=== PATIENT | female | born 1985 | race Caucasian/White ===

== ENCOUNTER → 2021-08-16 12:01 | Outpatient (BNVA) | payer MEDICARE, MEDICAID, SELFPAY | PROVIDERS: PCP Internal Medicine; Visit Provider Advanced Practice Midwife | DX: Z30.431 Encounter for routine checking of intrauterine contraceptive device (principal); R10.2 Pelvic and perineal pain | CPT/HCPCS: Q3014 ==

== ENCOUNTER 2021-09-01 11:06 | Outpatient (REF) | payer MEDICARE, SELFPAY ==
--- NOTE | ~2021-09-01 | US_ITS ---
EXAMINATION: US PELVIS CLINICAL INFORMATION: Left ovarian cyst. COMPARISON: Ultrasound pelvis 01/26/2020. TECHNIQUE: Ultrasound of the pelvis is performed using both transabdominal and transvaginal transducers along with Doppler. Transvaginal imaging is performed due to inadequate visualization transabdominally. FINDINGS: Uterus: The uterus is anteverted and measures 8.4 cm in length, 4.2 cm AP and 5.2 cm in transverse dimension. Endometrial thickness is 0.3 cm. An IUD is noted well located within the endometrial canal. There is a small hypoechoic lesion in the anterior fundus measuring 0.7 x 0.5 x 0.7 cm. The double wall endometrial thickness measures 0.3 cm. The uterus is smooth in contour and has normal myometrial echogenicity. There are several anechoic nabothian cysts seen. Adnexa: The right ovary measures 2.8 x 1.5 x 2.2 cm and volume 4.8 mL. There is anechoic exophytic lytic cyst measuring 0.9 x 0.9 x 0.6 cm. The left ovary measures 3.8 x 2.3 x 2.6 cm and 9.03 mL volume. There is anechoic cyst measuring 1.8 x 1.8 x 2.2 cm, with an adjacent anechoic daughter cyst. There is small calcification seen. US/US pelvic and transvaginal IMPRESSION: Exophytic cyst right ovary measuring 0.9 cm. Left ovarian cyst with a daughter cyst adjacent. There is small calcification right ovary. A complex right ovarian cyst was seen on the previous exam 01/26/2020. There is an IUD located within the endometrial canal in correct position. IUD was noted on the previous exam as well. There is a small fundal uterine fibroid.
== END 2021-09-01 11:07 | disposition home or self-care (01) ==
LOC: HO.US 11:06
PROVIDERS: PCP Internal Medicine; Visit Provider Advanced Practice Midwife
DX: N83.292 Other ovarian cyst, left side (principal)
CPT/HCPCS: 76830; 76856

== ENCOUNTER → 2021-09-12 13:36 | Outpatient (BNVA) | payer MEDICARE, MEDICAID, SELFPAY | PROVIDERS: Visit Provider Obstetrics & Gynecology | CPT/HCPCS: Q3014 ==

== ENCOUNTER → 2021-09-15 13:06 | Outpatient (BNVA) | payer OTHER, SELFPAY | PROVIDERS: PCP Internal Medicine; Visit Provider Advanced Practice Midwife | DX: Z30.432 Encounter for removal of intrauterine contraceptive device (principal) | CPT/HCPCS: 58301 ==

== ENCOUNTER 2022-10-24 09:48 | Outpatient (REF) | payer MEDICARE, MEDICAID, SELFPAY ==
--- NOTE | ~2022-10-24 | US_ITS ---
EXAMINATION: US DIAGNOSTIC ULTRASOUND BREAST, RIGHT CLINICAL INFORMATION: 37-year-old with palpable nodule posterior medial right breast near sternum for approximately one year. Patient also notes probable increased size of biopsy-proven fibroadenoma (no clip placed). COMPARISON: Outside imaging reports from [facility]: Right breast ultrasound 01/22/2015, ultrasound guided biopsy right breast 01/29/2015 (no clip placed), right breast ultrasound 11/16/2017. TECHNIQUE: Ultrasound of the right breast is targeted to the 2 areas of palpable concern using grayscale imaging and color Doppler without and with harmonics. Patient declined mammography. FINDINGS: The palpable area of concern posterior medial right breast 3:00 position near sternum demonstrates an intradermal lesion measuring approximately 0.7 x 0.5 cm with circumscribed margins and short stalk extending from the lesion towards the more superficial skin. There is no subdermal extension. There is increased through-transmission of sound. No surrounding hyperemia on color Doppler and no internal color flow. The previously biopsied mass (fibroadenoma, no clip placed) at areola margin 5:00 position demonstrates solid mass superficial just beneath the skin with macrolobulated margins and overall size 2.8 x 1.2 x 2.0 cm. This is increased in size when compared with prior measurements of 1.7 x 0.9 x 1.4 cm described on report 01/29/2015. Additional imaging is also performed at subtle area of erythema 4:00 position 6 cm from nipple. This corresponds to an intradermal lesion discoid in shape and overall size approximately 0.6 x 02 cm. There is mild surrounding hyperemia on color Doppler. No internal color flow. No subdermal extension or visible stalk to skin surface. Results are discussed with the patient at time of visit. The fibroadenoma is increased in size as suspected by patient. Surgical consult is suggested for consideration of excision. The 2 other areas of intradermal lesion most likely represent small sebaceous cysts. These may be addressed at time of surgical consult as well. Results and recommendation called to aoc director intelligence officer (Johana) for LEANDRA Rahman on 10/24/2022. US/US breast RT limited IMPRESSION: -Fibroadenoma 2.8 cm increased in size from prior measurement 1.7 cm. -Palpable nodule parasternal area corresponds to 0.7 cm intradermal lesion, likely sebaceous cyst. -Small intradermal lesion with mild surrounding hyperemia also noted 0.6 cm. ASSESSMENT: BI-RADS 3: Probably Benign RECOMMENDATION: -Surgical consult for management fibroadenoma with interval growth and sebaceous cyst(s). -Screening mammography by age 38. This patient's information was entered into a reminder system with a target due date for their next mammogram.
--- NOTE | ~2022-10-24 | XR_ITS ---
EXAMINATION: XR SHOULDER, RIGHT CLINICAL INFORMATION: Injury COMPARISON: Previous x-ray September 2019 TECHNIQUE: AP external rotation, Grashey, scapular Y, and axillary views of the right shoulder. FINDINGS: The bones and soft tissues are normal. No fracture. Glenohumeral and acromioclavicular alignment is anatomic with normal joint space. No abnormal soft tissue calcifications. XR/XR shoulder RT min 2V IMPRESSION: Normal right shoulder.
[2022-10-24 10:44] LABS: MANUAL DIFF FLAG NO
[2022-10-24 12:38] LABS: Basophils Absolute Auto 0.1 X10*3/uL (0.0-0.2); Basophils Percent Auto 0.8 % (0-2); Eosinophils Absolute Auto 0.2 X10*3/uL (0.0-0.4); Eosinophils Percent Auto 3.7 % (0-4); Hemoglobin 11.8 g/dl (12.0-16.0); Imm Gran Abs Auto 0.02 X10*3/uL (0.00-0.03); Imm Gran Pct Auto 0.3 % (0.0-0.4); Lymphocytes Percent Auto 16.7 % (20-40); Mean Corpuscular HGB Conc 31.1 g/dl (31.0-35.0); Mean Corpuscular Hemoglobin 21.3 pg (27.0-33.0); Mean Corpuscular Volume 68.6 fL (80.0-98.0); Monocytes Absolute Auto 0.5 X10*3/uL (0.1-1.2); Monocytes Percent Auto 8.8 % (2-11); Neutrophils Absolute Auto 4.3 x10*3/uL (2.0-8.3); Neutrophils Percent Auto 69.7 % (45-73); Platelet Count 250 X10*3/uL (160-400); Red Blood Count 5.54 X10*6/uL (4.20-5.50); Red Cell Distribution Width 16.3 % (11.0-16.0); White Blood Count 6.2 X10*3/uL (4.8-10.8)
[2022-10-24 13:20] LABS: Alanine Aminotransferase 16 U/L (0-31); Albumin Level 4.2 g/dL (3.5-5.0); Alkaline Phosphatase 41 U/L (39-117); Anion Gap 12 (12-20); Aspartate Amino Transferase 13 U/L (5-31); Bilirubin Total 0.9 mg/dL (0.0-1.0); Blood Urea Nitrogen 11 mg/dL (9-16); Calcium 9.3 mg/dL (8.4-10.2); Carbon Dioxide 26 mmol/L (22-29); Chloride 108 mmol/L (96-108); Cholesterol 134 mg/dL; Estimated Glomerular Filt Rate > 60; Glucose Random 84 mg/dL (60-115); HDL Cholesterol 54 mg/dL; LDL Cholesterol Calculated 70 mg/dl; Potassium 4.9 mmol/L (3.3-5.1); Sodium 141 mmol/L (135-145); TSH reflex Free T4 1.11 uIU/mL (0.32-4.0); Total Protein 7.1 g/dL (6.5-8.0); Triglycerides 50 mg/dL; Vitamin D 25-OH Total 28.6 ng/mL (>30)
== END 2022-10-24 09:49 | disposition home or self-care (01) ==
LOC: HO.MAMMO 09:48
PROVIDERS: PCP Internal Medicine; Visit Provider Nurse Practitioner Family
DX: Z13.29 Encounter for screening for other suspected endocrine disorder (principal); Z13.220 Encounter for screening for lipoid disorders; Z13.21 Encounter for screening for nutritional disorder; Z13.0 Encounter for screening for diseases of the blood and blood-forming organs and certain disorders involving the immune mechanism; S49.91XA Unspecified injury of right shoulder and upper arm, initial encounter; N63.12 Unspecified lump in the right breast, upper inner quadrant
CPT/HCPCS: 36415; 73030; 76642; 80053; 80061; 82306; 84443; 85025

== ENCOUNTER → 2022-11-16 09:39 | Outpatient (BNVA) | payer MEDICARE, MEDICAID, SELFPAY | PROVIDERS: PCP Internal Medicine; Visit Provider Surgery | DX: D24.1 Benign neoplasm of right breast (principal) | CPT/HCPCS: 99202 ==

== ENCOUNTER 2022-12-11 05:49 | Day surgery (SDC) | payer MEDICARE, MEDICAID, SELFPAY ==
[2022-12-01 20:14] VITALS: BMI 39.3
--- NOTE | 2022-12-08 09:16 | P.CONAN_ITS ---
Documented by User: Courtney Driscoll NP 12/08/22 09:19 HPI - Anesthesia Eval Consult details Narrative: 37yo F for Right Breast Lumpectomy PMFSH Active Problems Active Problems: All Active Problems (Updated 11/16/22 @ 10:17 by Feliz Rogers MD) Breast mass, right (Acute) Vitamin D deficiency (Acute) Mass of multiple sites of right breast (Acute) Right shoulder injury (Acute) Encounter for IUD removal (Acute) Family planning advice (Acute) Pelvic pain in female (Acute) IUD surveillance (Acute) Complex cyst of left ovary (Acute) Thyroid nodule (Acute) Back pain (Acute) Knee pain, right (Acute) Arm pain, right (Acute) Neck pain (Acute) Urinary incontinence (Acute) Radicular pain in right arm (Acute) Anxiety (Acute) GERD (gastroesophageal reflux disease) (Acute) Past Medical History Medical History Anxiety Complex cyst of left ovary Complex regional pain syndrome Fibromyalgia GERD (gastroesophageal reflux disease) H. pylori duodenitis Mass of multiple sites of right breast Right shoulder injury Thalassemia carrier Thyroid nodule Ventral incisional hernia Vitamin D deficiency Family History Family History Mother Thyroid cancer Maternal Grandfather Lung cancer Surgical History Surgical History History of removal of cyst History of umbilical hernia repair Social History Social History Housing: House Alcohol intake: never Patient Tobacco Use Status: Former Tobacco user Years Smoked: pt states quit 2010 Use of substances other than those prescribed or required for medical reasons: Yes Substance Use Frequency: Daily Are you DNR?: No Advance Directives: No Advance Directives Information Provided: Yes Advance Directives on File: No Recently lost weight without trying: No Nutrition Risks: No Nutritional Risk Patient : No service: No Current occupational status: disabled Current occupation: pt on disability Sexual orientation: Straight/Heterosexual Gender identity: Female Cognitive needs: No Hearing needs: No Vision needs: No Meds Allergies Allergy/AdvReac Type Severity Reaction Status Date / Time Penicillins [PCN] Allergy Intermediate HIVES Verified 11/16/22 09:52 Home Medications Medication Instructions Recorded Confirmed Last Taken Type alprazolam 0.25 mg tablet 0.25 mg PO DAILY 09/03/20 12/01/22 Unknown History multivitamin 1 tab PO DAILY 09/03/20 12/01/22 Unknown History ascorbic acid (vitamin C) 1,000 mg 1,000 mg PO DAILY 12/01/22 12/01/22 Unknown History tablet,extended release (Vitamin C ER) zinc 50 mg tablet 50 mg PO DAILY 12/01/22 12/01/22 Unknown History glutathione 1,000 12/11/22 Unknown History Exam Exam Date and Time: December 08, 2022 0916 Height,Weight and Vital Signs: Height 5 ft 3 in Weight 100.698 kg Pertinent Lab Results Pertinent Lab Results: Laboratory Tests 10/24/22 10/24/22 10:43 10:43 WBC 6.2 Hgb 11.8 L Hct 38.0 Plt Count 250 Sodium 141 Potassium 4.9 Chloride 108 Carbon Dioxide 26 BUN 11 Creatinine 0.78 Assessment and Plan Assessment Anesthesia Assessment: Chart Reviewed Documented by User: Anuja Pena MD 12/11/22 08:03 [facility] Past Medical History Medical History Anxiety Complex cyst of left ovary Complex regional pain syndrome Fibromyalgia GERD (gastroesophageal reflux disease) H. pylori duodenitis Mass of multiple sites of right breast Right shoulder injury Thalassemia carrier Thyroid nodule Ventral incisional hernia Vitamin D deficiency Family History Family History Mother Thyroid cancer Maternal Grandfather Lung cancer Family history of problems with anesthesia: No Surgical History Surgical History History of removal of cyst History of umbilical hernia repair History of Problems with Anesthesia: No Social History Social History Housing: House Alcohol intake: never Patient Tobacco Use Status: Former Tobacco user Years Smoked: pt states quit 2009 Use of substances other than those prescribed or required for medical reasons: Yes Substance Use Frequency: Daily Are you DNR?: No Advance Directives: No Advance Directives Information Provided: Yes Advance Directives on File: No Recently lost weight without trying: No Nutrition Risks: No Nutritional Risk Patient : No service: No Current occupational status: disabled Current occupation: pt on disability Sexual orientation: Straight/Heterosexual Gender identity: Female Cognitive needs: No Hearing needs: No Vision needs: No Meds Allergies Allergy/AdvReac Type Severity Reaction Status Date / Time Penicillins [PCN] Allergy Intermediate HIVES Verified 11/16/22 09:52 Home Medications Medication Instructions Recorded Confirmed Last Taken Type alprazolam 0.25 mg tablet 0.25 mg PO DAILY 09/03/20 12/01/22 Unknown History multivitamin 1 tab PO DAILY 09/03/20 12/01/22 Unknown History ascorbic acid (vitamin C) 1,000 mg 1,000 mg PO DAILY 12/01/22 12/01/22 Unknown History tablet,extended release (Vitamin C ER) zinc 50 mg tablet 50 mg PO DAILY 12/01/22 12/01/22 Unknown History glutathione 1,000 12/11/22 Unknown History Exam Airway Mallampati Class: I TM Dist: >3cm Neck ROM: Full Loose/Missing/Broken Teeth: No Heart: RRR Lungs: CTA Assessment and Plan Assessment Anesthesia Assessment: Anesthesia Plan Discussed Final Anesthetic Review Family History of Problems with Anesthesia: No History of Problems with Anesthesia: No NPO: Yes ASA Class: II Final Preanesthetic Review: No Changes in Pt Med Stat, Meds/Allgs Chart Reviewed, Consent Obtained/Reviewed and Anes Risks/Benef Reviewed Patient Risk: Low Procedure Risk: Low Anesthetic Plan Anesthetic Plan: GA Disposition: Standard PACU
[2022-12-11] VITALS (7 sets, daily range): BP systolic 108–161; BP diastolic 53–82; PULSE 66–96; RESP 16–30; TEMP 36.4–37.2; O2SAT 95–99; BMI 38.9
[2022-12-11 06:27] LABS: UPreg QC Valid YES; Urine Pregnancy NEGATIVE (NEGATIVE)
[2022-12-11] MEDS: vancomycin HCL 1,500 MG in 0.9 % Sodium Chloride 500 ML 333.33 MG IV (06:57)
--- NOTE | 2022-12-11 06:58 | PC.NURSE ---
patient request no blood pressure on left side. 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
--- NOTE | 2022-12-11 07:02 | MHC.SHP ---
Pre-Procedural Eval Section A Date of Service: 12/11/22 The patient is an INPATIENT: No Changes since office visit: Yes Patient answered all questions; No Cold of Flu in the past 2 weeks, No New Medical Problems and No Changes in Medication The History & Physical has been completed within 30 days and I have reviewed it.: Yes Section B Chief Complaint: Unspecified lump in the right breast, unspecified Allergies: Allergies Allergy/AdvReac Type Severity Reaction Status Date / Time Penicillins [PCN] Allergy Intermediate HIVES Verified 11/16/22 09:52 Plan Diagnosis/Plan: Unchanged I have reviewed the history and physical and performed a pertinent physical examination on my patient. No changes have occurred unless specified. Time Spent With Patient Time: Total time managing care of this patient today ____ minutes.
--- NOTE | 2022-12-11 08:20 | P.OP_ITS ---
Operative Note Operative Note Date of Service: 12/11/22 Narrative: Preoperative diagnosis: right breast mass, right breast cyst Postoperative diagnosis: same Procedure: excision right breast mass, right breast cyst Surgeon: Feliz Rogesr MD Monorail Charger Operator: Karis Ledezma PA-C Anesthesia: general LMA Indications for procedure: 37-year-old female with a biopsy-proven fibroadenoma in the right breast below the nipple-areolar complex right breast as well as a palpable cyst the upper the under quadrant of the right breast Operative findings: fibroadenoma right breast epidermal inclusion cyst right breast Specimen: fibroadenoma right breast, epidermal inclusion cyst right breast Estimated blood loss: 2 mL Complications: none Procedure details: patient was brought to the OR placed in a supine position. After administering general anesthesia the patient's right breast was prepped with ChloraPrep and draped in a sterile fashion. A surgical time-out was called the consent confirmed. Patient received preoperative antibiotics and Venodyne boots were in place. Local anesthesia consisting of 0.5% Sensorcaine with epinephrine was infiltrated along the nipple-areolar complex margin from the 6 to a Four o'clock location. incision was then made with a scalpel carried out through subcutaneous tissue. Superior inferior skin flaps were then created with the trocars repair palpable mass was then grasped with an Allis clamp and electrocautery used dissect completely around the lesion leaving a rim of normal tissue adjacent to the mass. The mass was sent to pathology for further examination. After assuring adequate hemostasis the deep breast tissue was reap proximated using interrupted 3-0 Polysorb sutures. Dermis was then reapproximated using interrupted 3-0 Polysorb sutures. Skin was closed using a running subcuticular 4-0 Polysorb suture. Attention was then directed to assist in the upper inner quadrant. Again local anesthesia was infiltrated around the lesion. Elliptical incision was then created around the cyst and carried out through subcutaneous tissue, around the cyst wall to excise the entire lesion. Hemostasis was assured using electrocautery. The lesion was passed off the table for in sent as cyst right breast. Dermis was then reapproximated using interrupted 3-0 Polysorb sutures. Skin was closed using a running subcuticular 4-0 Polysorb suture. Sterile dressings consisting of Steri-Strips, 2 x 2 gauze and Tegaderm were then applied. The patient tolerated the procedure well. Sponge, instrument, and needle counts reported as correct. Patient was transferred to PACU in stable condition.
== END 2022-12-11 10:13 | disposition home or self-care (01) ==
PROVIDERS: Nurse Practitioner; PCP Internal Medicine; Visit Provider Surgery
PROC: (CPT 19301; principal; 2022-12-11 07:30)
DX: D24.1 Benign neoplasm of right breast (principal); N60.81 Other benign mammary dysplasias of right breast
CPT/HCPCS: 19120; 81025; 88304; 88305; 88307; J2250; J3010; J3371

== ENCOUNTER → 2022-12-22 08:37 | Outpatient (BNVA) | payer MEDICARE, MEDICAID, SELFPAY | PROVIDERS: PCP Internal Medicine; Visit Provider Surgery | DX: Z13.89 Encounter for screening for other disorder (principal) | CPT/HCPCS: 99212 ==

== ENCOUNTER 2023-03-23 09:32 | Outpatient (REF) | payer MEDICARE, MEDICAID, SELFPAY ==
--- NOTE | ~2023-03-23 | XR_ITS ---
EXAMINATION: XR KNEE, LEFT XR KNEE AP STANDING CLINICAL INFORMATION: Pain. COMPARISON: None available. TECHNIQUE: Lateral and axial views of the left knee were obtained. AP bilateral standing view of the knees was obtained. FINDINGS: Bones and soft tissues are normal. No fracture or joint effusion. Alignment is anatomic. No varus or valgus configuration is seen bilaterally. Joint spaces are well maintained. No abnormal soft tissue calcification. XR/XR knee LT 2V IMPRESSION: Normal left knee radiographs and AP view of the bilateral knees.
--- NOTE | ~2023-03-23 | XR_ITS ---
EXAMINATION: XR KNEE, LEFT XR KNEE AP STANDING CLINICAL INFORMATION: Pain. COMPARISON: None available. TECHNIQUE: Lateral and axial views of the left knee were obtained. AP bilateral standing view of the knees was obtained. FINDINGS: Bones and soft tissues are normal. No fracture or joint effusion. Alignment is anatomic. No varus or valgus configuration is seen bilaterally. Joint spaces are well maintained. No abnormal soft tissue calcification. XR/XR knee standing BI IMPRESSION: Normal left knee radiographs and AP view of the bilateral knees.
== END 2023-03-23 09:33 | disposition home or self-care (01) ==
LOC: HO.HOSX 09:32
PROVIDERS: Visit Provider Orthopaedic Surgery
DX: M23.92 Unspecified internal derangement of left knee (principal)
CPT/HCPCS: 73560; 73565; 99202

== ENCOUNTER 2023-04-09 07:19 | Outpatient (REF) | payer MEDICARE, MEDICAID, SELFPAY ==
--- NOTE | ~2023-04-09 | MR_ITS ---
EXAMINATION: MR KNEE WITHOUT CONTRAST, LEFT CLINICAL INFORMATION: Left knee pain. Unspecified internal derangement of the knee. COMPARISON: Radiograph dated 03/23/2023. TECHNIQUE: MRI of the knee without contrast was performed using routine sequences on a high-field scanner. FINDINGS: MENISCI: Medial Meniscus: Intact. Lateral Meniscus: Intact. LIGAMENTS: Cruciate: Intact. Collateral: Intact. EXTENSOR MECHANISM: Intact. ARTICULAR CARTILAGE/BONE: Bone marrow signal is normal. Patellofemoral Compartment: Patellar cartilage is normal. Small chondral fissure is suspected at the inferior aspect of the medial trochlear facet. Articular cartilage is otherwise normal. Medial Compartment: Small marginal osteophytes. A small chondral fissure is evident at the medial femoral condyle weightbearing surface. Lateral Compartment: Normal. JOINT FLUID AND BURSAE: Trace joint fluid is within normal limits in volume. Trace fluid in the expected location of a Rogers's cyst. Mild subcutaneous edema in the prepatellar and superficial infrapatellar soft tissues. MR/MR knee LT wo con IMPRESSION: 1. Intact ligaments and menisci. 2. Minimal arthrosis in the medial and patellofemoral compartments.
== END 2023-04-09 07:20 | disposition home or self-care (01) ==
LOC: HO.MRI 07:19
PROVIDERS: PCP Internal Medicine; Visit Provider Orthopaedic Surgery
DX: M23.92 Unspecified internal derangement of left knee (principal)
CPT/HCPCS: 73721

== ENCOUNTER 2023-04-17 11:01 | Outpatient (REF) | payer MEDICARE, MEDICAID, SELFPAY ==
[2023-04-17 12:32] LABS: Vitamin D 25-OH Total 40.6 ng/mL (>30)
== END 2023-04-17 11:02 | disposition home or self-care (01) ==
LOC: HO.LAB 11:01
PROVIDERS: Visit Provider Nurse Practitioner Family
DX: E55.9 Vitamin D deficiency, unspecified (principal)
CPT/HCPCS: 36415; 82306

== ENCOUNTER 2023-04-26 08:36 | Outpatient (REF) | payer MEDICARE, MEDICAID, SELFPAY ==
[2023-04-26 09:35] LABS: Basophils Percent Auto 0.7 % (0-2); Eosinophils Absolute Auto 0.4 X10*3/uL (0.0-0.4); Eosinophils Percent Auto 6.4 % (0-4); Hematocrit 39.4 % (37.0-47.0); Hemoglobin 12.2 g/dl (12.0-16.0); Imm Gran Abs Auto 0.03 X10*3/uL (0.00-0.03); Imm Gran Pct Auto 0.5 % (0.0-0.4); Immature Retic Fraction 12.8 % (3.0-15.9); Lymphocytes Absolute Auto 1.1 X10*3/uL (1.2-4.9); Lymphocytes Percent Auto 20.4 % (20-40); MANUAL DIFF FLAG SCAN; Mean Corpuscular Hemoglobin 21.1 pg (27.0-33.0); Mean Corpuscular Volume 68.2 fL (80.0-98.0); Monocytes Absolute Auto 0.5 X10*3/uL (0.1-1.2); Monocytes Percent Auto 9.3 % (2-11); Neutrophils Absolute Auto 3.4 x10*3/uL (2.0-8.3); Neutrophils Percent Auto 62.7 % (45-73); Platelet Count 238 X10*3/uL (160-400); Red Blood Count 5.78 X10*6/uL (4.20-5.50); Red Cell Distribution Width 16.2 % (11.0-16.0); Retic HGB Equivalent 23.5 pg (30.0-35.0); Reticulocytes Absolute 0.058 X10*6/uL (0.026-0.095); SCAN SMEAR FLAG 1; White Blood Count 5.5 X10*3/uL (4.8-10.8)
[2023-04-26 09:52] LABS: SLIDE REVIEW VERIFIED
[2023-04-26 10:33] LABS: Erythrocyte Sedimentation Rate 4 MM/HR (0-20)
[2023-04-26 11:16] LABS: Alanine Aminotransferase 20 U/L (0-31); Albumin Level 4.1 g/dL (3.5-5.0); Alkaline Phosphatase 44 U/L (39-117); Anion Gap 11 (12-20); Aspartate Amino Transferase 14 U/L (5-31); Bilirubin Total 1.1 mg/dL (0.0-1.0); Blood Urea Nitrogen 12 mg/dL (9-16); C Reactive Protein 0.32 mg/dL (< or = 0.50); Calcium 9.3 mg/dL (8.4-10.2); Carbon Dioxide 27 mmol/L (22-29); Chloride 107 mmol/L (96-108); Cholesterol 133 mg/dL; Estimated Glomerular Filt Rate > 60; Ferritin 20 ng/mL (10-122); Free T4 (Free Thyroxine) 0.87 ng/dL (0.71-1.85); Glucose Random 94 mg/dL (60-115); HDL Cholesterol 64 mg/dL; LDL Cholesterol Calculated 61 mg/dl; Potassium 4.6 mmol/L (3.3-5.1); Sodium 140 mmol/L (135-145); Thyroid Stimulating Hormone 1.66 uIU/mL (0.32-4.0); Total Protein 7.3 g/dL (6.5-8.0); Triglycerides 41 mg/dL; Vitamin D 25-OH Total 36.7 ng/mL (>30)
[2023-04-26 11:18] LABS: Folate 9.7 ng/mL (> or = 4.0); Vitamin B12 320 pg/mL (200-900)
[2023-04-26 11:33] LABS: Estimated Average Glucose 105 mg/dL; Hemoglobin A1c % 5.3 %
== END 2023-04-26 08:37 | disposition home or self-care (01) ==
LOC: HO.LAB 08:36
PROVIDERS: PCP Internal Medicine; Visit Provider Internal Medicine
DX: M25.562 Pain in left knee (principal); E78.00 Pure hypercholesterolemia, unspecified; D64.9 Anemia, unspecified; R26.9 Unspecified abnormalities of gait and mobility; Z87.891 Personal history of nicotine dependence; R73.9 Hyperglycemia, unspecified; E55.9 Vitamin D deficiency, unspecified
CPT/HCPCS: 36415; 80053; 80061; 82306; 82607; 82728; 82746; 83036; 83735; 84439; 84443; 85025; 85045; 85652; 86140; 99212

== ENCOUNTER 2023-10-16 09:58 | Outpatient (REF) | payer MEDICARE, MEDICAID, SELFPAY ==
[2023-10-16 11:42] LABS: Basophils Percent Auto 0.8 % (0-2); Eosinophils Absolute Auto 0.2 X10*3/uL (0.0-0.4); Eosinophils Percent Auto 3.7 % (0-4); Hematocrit 38.1 % (37.0-47.0); Hemoglobin 11.8 g/dl (12.0-16.0); Imm Gran Abs Auto 0.01 X10*3/uL (0.00-0.03); Imm Gran Pct Auto 0.2 % (0.0-0.4); Lymphocytes Absolute Auto 1.1 X10*3/uL (1.2-4.9); Lymphocytes Percent Auto 20.8 % (20-40); MANUAL DIFF FLAG SCAN; Mean Corpuscular Hemoglobin 21.1 pg (27.0-33.0); Monocytes Absolute Auto 0.4 X10*3/uL (0.1-1.2); Monocytes Percent Auto 7.5 % (2-11); Neutrophils Absolute Auto 3.5 x10*3/uL (2.0-8.3); Platelet Count 346 X10*3/uL (160-400); Red Cell Distribution Width 16.3 % (11.0-16.0); SCAN SMEAR FLAG 1; White Blood Count 5.2 X10*3/uL (4.8-10.8)
[2023-10-16 11:44] LABS: PLT ABN DIST 1
[2023-10-16 11:55] LABS: SLIDE REVIEW VERIFIED
[2023-10-16 11:56] LABS: Reticulocyte Percent 0.8 % (0.5-1.8); Reticulocytes Absolute 0.043 X10*6/uL (0.026-0.095)
[2023-10-16 12:36] LABS: Vitamin B12 375 pg/mL (200-900)
[2023-10-16 12:56] LABS: Alanine Aminotransferase 17 U/L (0-31); Albumin Level 4.2 g/dL (3.5-5.0); Alkaline Phosphatase 39 U/L (39-117); Anion Gap 11 (12-20); Aspartate Amino Transferase 13 U/L (5-31); Bilirubin Total 0.8 mg/dL (0.0-1.0); Blood Urea Nitrogen 8 mg/dL (9-16); Calcium 9.3 mg/dL (8.4-10.2); Carbon Dioxide 26 mmol/L (22-29); Chloride 107 mmol/L (96-108); Estimated Glomerular Filt Rate > 60; Ferritin 52 ng/mL (10-250); Glucose Random 82 mg/dL (60-115); Iron 94 mcg/dL (30-160); Percent Iron Saturation 43 % (15-50); Potassium 3.9 mmol/L (3.3-5.1); Sodium 140 mmol/L (135-145); Total Iron Binding Capacity 220 mcg/dL (228-428); Total Protein 7.4 g/dL (6.5-8.0); Unsaturated Iron Binding 126 ug/dL
== END 2023-10-16 09:59 | disposition home or self-care (01) ==
LOC: HO.LAB 09:58
PROVIDERS: PCP Internal Medicine; Visit Provider Internal Medicine
DX: D64.9 Anemia, unspecified (principal)
CPT/HCPCS: 36415; 80053; 82607; 82728; 82746; 83540; 85025; 85045

== ENCOUNTER 2023-10-24 11:00 | Outpatient (AMB) | payer MEDICARE, MEDICAID, SELFPAY ==
[2023-10-24 11:03] VITALS: BP 124/84; PULSE 61; O2SAT 98; BMI 40.0
--- NOTE | 2023-10-24 11:03 | MHC.PC.OV ---
Vital Signs 10/24/23 11:03 Height 5 ft 3 in Weight 226 lb BMI 40.0 BP 124/84 Blood Pressure Location Lt brachial Position Sitting Pulse 61 Pulse Source Pulse Oximeter Pulse Oximetry (%) 98 Oxygen Delivery Method Room Air Intake Visit Reasons: Annual Exam Intake Note: Pt is here for physical. Brass Roller Required: No Accompanied by: Self / Same As Patient Allergies Penicillins [PCN] Allergy (Intermediate, Verified 10/24/23 11:09) HIVES Medication List - Last Reconciled 10/24/23 by Thomas Boles MD alprazolam 0.25 mg PO DAILY ascorbic acid (vitamin C) ER (Vitamin C ER) 1,000 mg PO DAILY baclofen 10 mg PO BID PRN 30 days [persian herbs PO] cholecalciferol (vitamin D3) 25 mcg PO DAILY ferrous fumarate 324 mg PO DAILY [glutathione 1,000] hydroxychloroquine 200 mg PO DAILY multivitamin 1 tab PO DAILY zinc 50 mg PO DAILY Tobacco use date assessed: 03/09/23 Dental Screening Dental Screen Date: 10/24/23 Did you have a dental visit in the last 12 months?: Yes Did you have a dental problem in the last 6 months where you did not have access to dental care?: No Was dental information given to patient?: Patient has dentist HPI Annual Exam HPI Details 38-year-old morbidly obese female with generalized anxiety disorder GERD and left knee arthritis last seen in April 2023. Patient is here for physical exam patient was seen by the Orthopedics in April 2023 for the left knee pain status post October 2019 fall . 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 pylori duodenitis Mass of multiple sites of right breast Right shoulder injury Thalassemia carrier Thyroid nodule Ventral incisional hernia Vitamin D deficiency Surgical History History of lumpectomy of right breast (12/11/22) History of removal of cyst History of umbilical hernia repair Family History (Updated 10/24/23 @ 11:48 by Thomas Boles MD) Mother Thyroid cancer Maternal Grandfather Lung cancer Paternal Grandfather Heart attack Social History Housing: House Alcohol intake: never Patient Tobacco Use Status: Former Tobacco user Years Smoked: pt states quit 2009 e-Cigarette/Vaping Use: Never Used Second Hand Smoke Exposure: No service: No Current occupational status: disabled Current occupation: pt on disability Sexual orientation: Straight/Heterosexual Gender identity: Female Cognitive needs: No Hearing needs: No Vision needs: No Female Reproductive History Menstrual Age of Menarche: 10 Questionnaire Thrive Questionnaire Date Thrive assessed: 03/09/23 AUGUSTINE-7 AMB Questionnaire AUGUSTINE-7 Date AUGUSTINE - 7 assessed: 03/09/23 (pt DX with situational anxiety ) Source: Developed by Drs. Cristian Valdivia, Nehal Galindo, Paramjit Cerrato and colleagues, with an educational xiao from [employer]. Review of Systems Const Denies poor appetite and Denies weakness Eyes Denies no additional complaints ENT Reports Normal hearing present, Denies dizziness, Denies nasal congestion, Denies tinnitus and Denies sore throat Card Denies chest pain, Denies syncope, Denies rapid heart rate and Denies dyspnea Resp Denies cough and Denies dyspnea GI Denies change in stool character, Reports constipation, Denies diarrhea, Denies nausea and Denies vomiting Denies urinary frequency, Denies difficulty voiding and Denies dysuria Neuro Reports Normal hearing present, Denies confusion, Denies dizziness, Denies syncope and Denies weakness Psych Denies confusion Physical exam (Primary Care) Vital Signs: Last Vital Signs Pulse 61 10/24/23 11:03 BP 124/84 10/24/23 11:03 Pulse Ox 98 10/24/23 11:03 Oxygen Delivery Method Room Air 10/24/23 11:03 BMI result Body Mass Index 40.0 Tobacco/Smoking Status: Tobacco use Status Tobacco use date assessed 03/09/23 10/24/23 11:04 Patient Tobacco Use Status Former Tobacco user 10/24/23 11:04 e-Cigarette/Vaping Use Never Used 10/24/23 11:04 Thrive Assessment: Date of Thrive Assessment Date Thrive assessed 03/09/23 10/24/23 11:04 Const General: No confusion Orientation/consciousness: No confusion HENMT Head: Yes normocephalic Ears: external ears normal and TM's normal bilaterally Face and sinus: Yes normal facial exam Mouth: moist mucous membranes Throat: Yes tonsils normal Eyes Conjunctivae: conjunctivae normal Pupils: Equal, round and reactive pupils present and Pupil accommodation reflex normal Direct Ophthalmoscopy: normal light reflex Neck Neck: No lymphadenopathy Thyroid: Thyroid normal Chest Chest palpation & inspection: normal inspection of the chest Resp Effort & Inspection: normal respiratory effort and no audible wheezes Auscultation: clear to auscultation bilaterally, no crackles, no wheezes and lung sounds not diminished Cardio Rate: regular rate Rhythm: regular rhythm Peripheral pulses: radial pulses present and dorsalis pedis present GI Palpation (GI): no masses Auscultation: normal bowel sounds and normoactive bowel sounds Rectal Exam - Female: deferred Skin General skin exam: no rashes or lesions noted Rashes: no rashes Neuro General: No confusion Cranial nerves: Yes Equal, round and reactive pupils present and Yes Normal hearing present Cognition (Neuro): normal cognition Gait exam (Neuro): Normal gait present Motor exam (neuro): 5/5 motor strength present throughout Deep tendon reflexes (DTR's): Right brachioradialis reflex intensity grade: 2+, Left brachioradialis reflex intensity grade: 2+, Right patellar reflex intensity grade: 2+ and Left patellar reflex intensity grade: 2+ Extrem General: No edema Assessment and Plan Assessment & Plan (1) Annual physical exam: Code(s): Z00.00 - Encounter for general adult medical examination without abnormal findings (2) Left knee pain: Code(s): M25.562 - Pain in left knee Plan: Patient has seen the Orthopedics and has advised physical therapy (3) Anemia: Code(s): D64.9 - Anemia, unspecified Plan: Continue to follow-up (4) GERD (gastroesophageal reflux disease): Code(s): K21.9 - Gastro-esophageal reflux disease without esophagitis Qualifiers: Esophagitis presence: without esophagitis Qualified Code(s): K21.9 - Gastro-esophageal reflux disease without esophagitis Plan: Avoid the foods that causes that usually spicy foods, tomato products, juices, coffee, soda and foods that your sensitive to. After eating do not lie down, allow 3-4 hours before in lie down. And keep the head of bed above 30 degrees to avoid the acid from going up. (5) Generalized anxiety disorder: Comment: Decline any referral for counseling Code(s): F41.1 - Generalized anxiety disorder Plan: Continue with medications as needed (6) Breast cancer screening by mammogram: Comment: 11/2022 US done as per patient Code(s): Z12.31 - Encounter for screening mammogram for malignant neoplasm of breast (7) Morbid obesity: Code(s): E66.01 - Morbid (severe) obesity due to excess calories Plan: Diet and exercise Medications: New ascorbic acid (vitamin C) ER (Vitamin C ER) 1,000 mg PO DAILY 90 tabs 1RF D64.9 - Anemia, unspecified Refilled ferrous fumarate 324 mg PO DAILY 90 tabs 0RF D64.9 - Anemia, unspecified Coding Level of Care Code Est Pt Prev Care 40-64y(79722) Diagnoses Annual physical exam Z00.00 Left knee pain M25.562 Anemia D64.9 Gastroesophageal reflux disease without esophagitis K21.9 Esophagitis presence: without esophagitis Generalized anxiety disorder F41.1 Breast cancer screening by mammogram Z12.31 Morbid obesity E66.01
== END 2023-10-24 12:03 | disposition home or self-care (01) ==
PROVIDERS: PCP Internal Medicine; Visit Provider Internal Medicine
DX: Z00.00 Encounter for general adult medical examination without abnormal findings (principal); E66.01 Morbid (severe) obesity due to excess calories; Z68.41 Body mass index [BMI] 40.0-44.9, adult; D64.9 Anemia, unspecified
CPT/HCPCS: 99396

== ENCOUNTER 2024-01-23 11:13 | Outpatient (AMB) | payer MEDICARE, MEDICAID, SELFPAY ==
--- NOTE | 2024-01-23 12:02 | AM.OFFWIN_ITS ---
Intake Vital Signs 01/23/24 12:06 Height 5 ft 3 in Weight 221 lb BMI 39.1 BP 120/80 Blood Pressure Location Rt brachial Position Sitting Pulse 64 Pulse Source Pulse Oximeter Temp 98.3 F Temp Source Oral Pulse Oximetry (%) 98 Oxygen Delivery Method Room Air Intake Visit Reasons: EP ?Pneumonia Intake Note: Patient here for chest pain, coughing that has been present for about 1 week and also mentioned she has not been able to keep anything down for the past week. Patient Tobacco Use Status: Former Tobacco user Allergies Penicillins [PCN] Allergy (Intermediate, Verified 01/23/24 12:08) HIVES Do you need a note to return to daycare/school/sports/work: No HPI HPI Comments History of Present Illness Details 38 y/o female patient who presents to [facility] in clinic with c/o coughing and chest congestion x 1 week. Pt does not like taking Pills and does not believe in Vaccinations - she likes natural remedies. [facility] [place] Medical History Anxiety Complex cyst of left ovary Complex regional pain syndrome Fibromyalgia GERD (gastroesophageal reflux disease) H. pylori duodenitis Mass of multiple sites of right breast Right shoulder injury Thalassemia carrier Thyroid nodule Ventral incisional hernia Vitamin D deficiency Surgical History History of lumpectomy of right breast (12/11/22) History of removal of cyst History of umbilical hernia repair Family History (Updated 10/24/23 @ 11:48 by Thomas Boles MD) Mother Thyroid cancer Maternal Grandfather Lung cancer Paternal Grandfather Heart attack Social History Housing: House Alcohol intake: never Patient Tobacco Use Status: Former Tobacco user Years Smoked: pt states quit 2009 e-Cigarette/Vaping Use: Never Used Second Hand Smoke Exposure: No service: No Current occupational status: disabled Current occupation: pt on disability Sexual orientation: Straight/Heterosexual Gender identity: Female Cognitive needs: No Hearing needs: No Vision needs: No Female Reproductive History Menstrual Age of Menarche: 10 Review of Systems Const All systems reviewed & are unremarkable except as noted in HPI and below Physical Exam Vital Signs: Last Vital Signs Temp 98.3 F 01/23/24 12:06 Pulse 64 01/23/24 12:06 BP 120/80 01/23/24 12:06 Pulse Ox 98 01/23/24 12:06 Oxygen Delivery Method Room Air 01/23/24 12:06 BMI result Body Mass Index 39.1 Const General: comfortable and no acute distress Orientation/consciousness: patient oriented x3 HEENT Head: Yes normocephalic Ears: external ears normal and TM's normal bilaterally General nose exam: Normal nasal mucous membranes and turbinates present and No nasal discharge present Face and sinus: Yes sinuses nontender Mouth: moist mucous membranes Throat: Yes posterior oropharynx normal Resp Effort & Inspection: normal respiratory effort, able to speak in complete sentences, no audible wheezes and no cough Auscultation: clear to auscultation bilaterally, no crackles, no rales, no rhonchi and no wheezes Cardio Rate: regular rate Rhythm: regular rhythm Neuro General: patient oriented x3 Assessment & Plan Assessment & Plan (1) Cough in adult: Code(s): R05.9 - Cough, unspecified Plan: - OTC remedies - Natural remedies - Rest - No need for Abx now. -SARs Orders: Orders SARS-CoV2/FLU/RSV Today R05.9 - Cough, unspecified, R09.89 - Other specified symptoms and signs involving the circulatory and respiratory systems Coding Level of Care Code Est Pt Level 3 (51635) Diagnoses Cough in adult R05.9 Time Spent (min) 15
[2024-01-23 12:06] VITALS: BP 120/80; PULSE 64; TEMP 36.8; O2SAT 98; BMI 39.1
== END 2024-01-23 12:41 | disposition home or self-care (01) ==
PROVIDERS: PCP Internal Medicine; Visit Provider Nurse Practitioner Family
DX: R05.9 Cough, unspecified (principal)
CPT/HCPCS: 99213

== ENCOUNTER 2024-01-23 12:24 | Outpatient (REF) | payer MEDICARE, MEDICAID, SELFPAY ==
[2024-01-23 17:18] LABS: Influenza A PCR NEGATIVE (Negative); Influenza B PCR NEGATIVE (Negative); Resp Syncy Virus RNA Qual PCR NEGATIVE (Negative); SARS COV2 PCR INHOUSE NEGATIVE (Negative)
== END 2024-01-23 12:25 | disposition home or self-care (01) ==
LOC: HO.LAB 12:24
PROVIDERS: Visit Provider Nurse Practitioner Family
DX: R05.9 Cough, unspecified (principal); R09.89 Other specified symptoms and signs involving the circulatory and respiratory systems; Z11.52 Encounter for screening for COVID-19; Z20.828 Contact with and (suspected) exposure to other viral communicable diseases
CPT/HCPCS: 0241U

== ENCOUNTER 2024-03-13 09:05 | Outpatient (AMB) | payer MEDICARE, MEDICAID, SELFPAY ==
[2024-03-13 09:07] VITALS: BP 124/72; PULSE 78; BMI 41.0
--- NOTE | 2024-03-13 09:07 | MHC.OFFVIS ---
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 She is absolutely pleasant 38-year-old female with no significant past medical history except for obesity. However she says she is generally very active and does a lot of activity. However over the last month or 2 she has been noticing symptoms of palpitation mostly when she is at rest of the evening time. She notices skipped heartbeats followed by few strong heartbeats. This symptoms are bothersome to her but has no associated findings. They happen infrequently about once or twice a week. She is concerned about it as her mom has diagnosis of hypertrophic cardiomyopathy and she wants to be evaluated further for the same. She has not had any other symptoms. She denies any exertional chest pain or shortness of breath. No lightheadedness, syncope. No prolonged palpitations or irregular heartbeat. Does not take medications and wants to avoid pharmacotherapy. She says she drinks strong Danish coffee in the [place] [employer] in the morning but this is been going on for many years. [facility] Medical History Vitamin D deficiency Mass of multiple sites of right breast Right shoulder injury Complex cyst of left ovary Anxiety GERD (gastroesophageal reflux disease) H. pylori duodenitis Thyroid nodule Thalassemia carrier Ventral incisional hernia Complex regional pain syndrome Fibromyalgia Surgical History History of lumpectomy of right breast (12/11/22) History of removal of cyst History of umbilical hernia repair Family History Mother Thyroid cancer Maternal Grandfather Lung cancer Paternal Grandfather Heart attack Social History Housing: House Alcohol intake: never Patient Tobacco Use Status: Former Tobacco user Years Smoked: pt states quit 2009 e-Cigarette/Vaping Use: Never Used Second Hand Smoke Exposure: No service: No Current occupational status: disabled Current occupation: pt on disability Sexual orientation: Straight/Heterosexual Gender identity: Female Cognitive needs: No Hearing needs: No Vision needs: No Female Reproductive History Menstrual Age of Menarche: 10 Review of Systems Const Denies chills, Denies daytime sleepiness, Denies fatigue, Denies fever(s), Denies frequent falls, Denies poor appetite, Denies snoring, Denies stops breathing during sleep, Denies weakness, Denies weight gain and Denies weight loss Eyes Denies loss of vision ENT Denies dizziness and Denies hearing loss Card Denies chest pain, Denies claudication, Denies leg edema, Denies lightheadedness, Denies palpitations, Denies dyspnea, Denies dyspnea on exertion and Denies orthopnea Resp Denies cough, Denies excessive phlegm production, Denies dyspnea, Denies dyspnea on exertion, Denies snoring and Denies wheezing GI Denies abdominal pain, Denies hematochezia, Denies change in bowel habits, Denies nausea and Denies vomiting Denies urinary frequency and Denies dysuria Musc Denies arthralgias, Denies muscle weakness, Denies numbness and Denies other (frequent falls) Skin/Breast Denies nail changes and Denies rash Neuro Denies Abnormal speech present, Denies dizziness, Denies frequent falls, Denies loss of vision, Denies memory loss, Denies numbness and Denies weakness Psych Denies depression and Denies memory loss Endo Denies fatigue and Denies palpitations Tai/Lymph Reports easy bruising and Reports other (anemia) Aller/Immun Denies wheezing Physical Exam Vital Signs: Last Vital Signs Pulse 78 03/13/24 09:07 BP 124/72 03/13/24 09:07 BMI result Body Mass Index 41.0 Const General: cooperative, comfortable, no acute distress, alert, awake and Physically active Nutritional Appearance: obese Orientation/consciousness: patient oriented x3 Limitations: no limitations HEENT Head: Yes normocephalic and Yes atraumatic Neck Neck: Yes trachea midline, Yes supple and Yes no JVD Resp Effort & Inspection: normal respiratory effort Auscultation: clear to auscultation bilaterally Cardio Jugular venous distension: no JVD Palpation: normal PMI Rate: regular rate Rhythm: regular rhythm Heart sounds: S1 normal heart sound present, S2 normal heart sound present, no click, no gallops, no murmurs and no rubs GI Auscultation: normal bowel sounds Skin General skin exam: no rashes or lesions noted Neuro General: patient oriented x3 and no focal motor deficits Speech: No Abnormal speech present Extrem General: Yes no clubbing, cyanosis or edema Psych Appearance: grossly normal Office Procedures EKG Details: EKG shows normal sinus rhythm sinus arrhythmia with poor R-wave progression most likely due to lead placement otherwise nonspecific T-wave changes noted [id number], Complete Assessment & Plan Assessment & Plan (1) Palpitations: Code(s): R00.2 - Palpitations Category: Medical Plan: Symptoms of palpitation or recent onset in this young woman with her mom's history of apical hypertrophic cardiomyopathy. Symptoms are highly suggestive of extra systoles such as PVCs. Discussed with her about pathophysiology of PVCs. Management was discussed. Further treatment will be based on frequency of PVCs and associated structural heart disease. Will suggest echocardiogram to evaluate for LV structure and function to evaluate for hypertrophic cardiomyopathy. She has no EKG findings suggestive of hypertrophic cardiomyopathy at this point in time. Also advise a 7 day Holter monitor to assess for arrhythmias as well as frequency if present as PVCs. Will follow up in the clinic after above-mentioned test. Thank you for allowing me to partake in the care Orders: Orders CA echo transthoracic complete Today R00.2 - Palpitations ECG 7 day holter monitor Today R00.2 - Palpitations Coding Level of Care Code New Pt Level 4 (60855) Diagnoses Palpitations R00.2 CPT Codes EKG - CPT: 61663-[id number], Complete ([id number])
== END 2024-03-13 09:40 | disposition home or self-care (01) ==
PROVIDERS: PCP Internal Medicine; Visit Provider Internal Medicine Cardiovascular Disease
DX: R00.2 Palpitations (principal)
CPT/HCPCS: 93010; 99204

== ENCOUNTER → 2024-03-13 09:05 | Outpatient (BNVA) | payer MEDICARE, MEDICAID, SELFPAY | PROVIDERS: PCP Internal Medicine; Visit Provider Internal Medicine Cardiovascular Disease | DX: R00.2 Palpitations (principal) | CPT/HCPCS: 93005; 99202 ==

== ENCOUNTER → 2024-03-28 08:57 | Outpatient (REF) | payer MEDICARE, MEDICAID, SELFPAY ==
--- NOTE | 2024-03-28 09:07 | HM_ITS ---
* Total monitoring time 7 days. * Underlying rhythm is sinus with an average rate of 70/Min. * Rare supraventricular and ventricular ectopy. * No significant pauses or AV blocks. * No patient markers. No diary submitted. MTDD
--- NOTE | 2024-03-28 09:07 | CA_ITS ---
Transthoracic Echocardiogram Patient (Last, First, Middle): Vidya Lopez, Gender: Female Date of : 1985 Age: 38 Procedure Date: 03/28/2024 Procedure Type: Transthoracic Echocardiogram Location: OP Height: 160.02 cm Weight: 104.78 kg BSA: 2.06 m2 Heart Rate: 58 bpm BP: 122 / 70 mmHg Telephone Diaphragm Assembler: TOYA Referring MD: Pedro Fuentes MD Teacher Tutor: Pedro Fuentes MD Symptoms: R00.2 - Palpitations Study Quality: Fair ECG Rhythm: Bradycardia Conclusions: - Essentially normal study Findings Procedure Information The quality of the study was technically difficult. The study quality is limited by patients body habitus. Left Ventricle Normal left ventricular size, thickness, and systolic function. The visually estimated ejection fraction is between 60-65%. Spectral Doppler is indicative of a normal filling pattern. Right Ventricle Normal right ventricular cavity size and systolic function. Aortic Valve Normal aortic valve structure and function. There is no aortic valve stenosis. There is no aortic valve regurgitation. Mitral Valve Normal mitral valve structure and function. There is trace mitral valve regurgitation. There is no mitral valve stenosis. Pulmonic Valve The pulmonic valve is likely normal. There is trace pulmonic valve regurgitation. Tricuspid Valve Normal tricuspid valve structure. Tricuspid regurgitation envelope is inadequate for calculation of right ventricular systolic pressure. Normal right atrial pressure. Great Vessels All visible segments of the aorta are normal in size. The pulmonary artery was not well visualized. Venous The inferior vena cava is normal in size and collapses greater than 50% with inspiration. Pericardium/Pleural There is no evidence of pericardial effusion. Prior Study Comparison No prior study available for comparison. Measurements 2D Linear Measurements IVSd: 0.72 0.6-0.9/0.6-1.0 cm LVIDd: 5.32 3.9-5.3/4.2-5.9 cm LVIDd Index: 2.58 2.4-3.2/2.2-3.1 cm/m2 LVIDs: 3.31 2.0-3.6 cm LVPWd: 0.84 0.7-1.1 cm LA Diam: 3.60 2.7-3.8/3.0-4.0 cm LAIDs Index: 1.75 1.5-2.3 cm/m2 LV Mass: 181.95 67-162/88-224 g LV Mass Index: 88.32 43-95/49-115 g/m2 LVOT Diam: 2.00 3.0+(-)1.3 cm 2D Systolic Function EF 4C: 69.00 >55% EF 2C: 62.20 >55% EF BiP: 65.00 >55% Mitral Valve MV Pk E: 0.87 MV PK A: 0.55 E/A: 1.60 E'Lateral: 12.90 E'Medial: 11.90 E/E' Med: 7.30 E/E' Lat: 6.70 Aortic Valve AoV Pk Curry: 1.49 AoV Mn Curry: 1.13 AoV VTI: 0.33 AoV Pk Grad: 9.00 Aov Mn Grad: 6.00 SWETA Cont.VTI: 1.91 SWETA: 2.27 LVOT LVOT Pk Curry: 1.08 LVOT Mn Curry: 0.72 LVOT VTI: 0.20 LVOT Pk Grad: 5.00 LVOT Mn Grad: 2.00 LVOT Diam: 2.00 LVOT Area: 3.14 Diastolic Function MV Pk E: 0.87 MV Pk A: 0.55 E/A: 1.60 E'Medial: 11.90 E/E' Med: 7.30 E' Laterial: 12.90 E/E' Lat: 6.70 Right Ventricle TAPSE (mm): 22.30 TVS' Curry: 13.10 Tricuspid Valve RA Press: 3.00 Great Vessels Aorta Sinus of Valsalva: 3.00 2.0-3.5 cm Ao Asc: 3.00 2.1-3.4 cm Ao Arch: 2.40 Ao Desc: 1.70 Pulmonary Veins Pulm Vein S/D 1.60 Pulmonary Valve PV Pk Curry: 1.05 Peak PV Grad: 4.00 Updated in Other Vendor System with Status of Final Pedro Fuentes MD electronically signed on 03/29/2024 3:44:45 PM with status of Final
== END ==
LOC: HO.CARD 08:57
PROVIDERS: PCP Internal Medicine; Visit Provider Internal Medicine Cardiovascular Disease
DX: R00.2 Palpitations (principal)
CPT/HCPCS: 93242; 93306

== ENCOUNTER → 2024-03-28 09:07 | Outpatient (BNV) | payer MEDICARE, MEDICAID, SELFPAY | PROVIDERS: PCP Internal Medicine; Visit Provider Internal Medicine Cardiovascular Disease | DX: I47.10 Supraventricular tachycardia, unspecified (principal) | CPT/HCPCS: 93244; 93306 ==

== ENCOUNTER 2024-04-17 09:45 | Outpatient (AMB) | payer MEDICARE, MEDICAID, SELFPAY ==
[2024-04-17 09:53] VITALS: BP 114/72; PULSE 59; O2SAT 99; BMI 40.2
--- NOTE | 2024-04-17 09:53 | A.OFFPC_ITS ---
Vital Signs 04/17/24 09:53 Height 5 ft 3 in Weight 227 lb 0.6 oz BMI 40.2 BP 114/72 Blood Pressure Location Rt brachial Position Sitting Pulse 59 Pulse Source Pulse Oximeter Pulse Oximetry (%) 99 Oxygen Delivery Method Room Air Intake Visit Reasons: 6 month f/u Allergies Penicillins [PCN] Allergy (Intermediate, Verified 04/17/24 09:56) HIVES Medication List - Last Reconciled 04/17/24 by Thomas Boles MD ascorbic acid (vitamin C) ER (Vitamin C ER) 1,000 mg PO DAILY [botswanan herbs PO] cholecalciferol (vitamin D3) 25 mcg PO DAILY ferrous fumarate 324 mg PO DAILY [K complete K1 +MK4 + Mk7 1 cap PO] multivitamin 1 tab PO DAILY zinc 50 mg PO DAILY Tobacco use date assessed: 04/17/24 Dental Screening Dental Screen Date: 10/24/23 Did you have a dental visit in the last 12 months?: Yes Did you have a dental problem in the last 6 months where you did not have access to dental care?: No Was dental information given to patient?: Patient has dentist HPI 6 month f/u HPI Details 38-year-old morbidly obese female BMI of 40 complain of left knee pain has a history of anemia GERD generalized anxiety disorder last seen in 10/31/2023. Review of the notes complained about palpitations and Holter was done showing sinus rhythm average of 70 no pauses no patient markers. Echocardiogram done March 31-patient did see Cardiology received notes from ophthalmology in December regarding headaches and visual symptoms. migraine is controlled [facility] Medical History Vitamin D deficiency Mass of multiple sites of right breast Right shoulder injury Complex cyst of left ovary Anxiety GERD (gastroesophageal reflux disease) H. pylori duodenitis Thyroid nodule Thalassemia carrier Ventral incisional hernia Complex regional pain syndrome Fibromyalgia Surgical History History of lumpectomy of right breast (12/11/22) History of removal of cyst History of umbilical hernia repair Family History Mother Thyroid cancer Maternal Grandfather Lung cancer Paternal Grandfather Heart attack Social History Housing: House Alcohol intake: never Patient Tobacco Use Status: Former Tobacco user Years Smoked: pt states quit 2010 e-Cigarette/Vaping Use: Never Used Second Hand Smoke Exposure: No service: No Current occupational status: disabled Current occupation: pt on disability Sexual orientation: Straight/Heterosexual Gender identity: Female Cognitive needs: No Hearing needs: No Vision needs: No Female Reproductive History Menstrual Age of Menarche: 10 Questionnaire PHQ-9 Over the last 2 weeks, how often have you been bothered by any of the following problems? 1. Little interest or pleasure in doing things: not at all 2. Feeling down, depressed, or hopeless: not at all 3. Trouble falling or staying asleep, or sleeping too much: not at all 4. Feeling tired or having little energy: not at all 5. Poor appetite or overeating: not at all 6. Feeling bad about yourself - or that you are a failure or have let yourself or your family down: not at all 7. Trouble concentrating on things, such as reading the newspaper or watching television: not at all 8. Moving or speaking so slowly that other people could have noticed. Or the opposite - being so fidgety or restless that you have been moving around a lot more than usual: not at all 9. Thoughts that you would be better off or of hurting yourself in some way: not at all Total score: 0 Depression Screening Interpretation: Negative Depression Screening Done: Yes Source: Developed by Drs. Cristian Valdivia, Nehal Galindo, Paramjit Cerrato and colleagues, with an educational xiao from [employer]. Thrive Questionnaire Date Thrive assessed: 03/09/23 AUDIT C Alcohol Use Questionnaire (AUDIT-C) 1. How often do you have a drink containing alcohol?: Never 3. How often do you have six or more drinks on one occasion?: Never Total Score: 0 AUGUSTINE-7 AMB Questionnaire AUGUSTINE-7 Date AUGUSTINE - 7 assessed: 04/17/24 (pt DX with situational anxiety ) Source: Developed by Drs. Cristian Valdivia, Nehal Galindo, Paramjit Cerrato and colleagues, with an educational xiao from [employer]. Physical exam (Primary Care) Vital Signs: Last Vital Signs Pulse 59 06/06/24 09:53 BP 114/72 04/17/24 09:53 Pulse Ox 99 04/17/24 09:53 Oxygen Delivery Method Room Air 04/17/24 09:53 BMI result Body Mass Index 40.2 Tobacco/Smoking Status: Tobacco use Status Tobacco use date assessed 04/17/24 04/17/24 09:59 Patient Tobacco Use Status Former Tobacco user 04/17/24 09:53 e-Cigarette/Vaping Use Never Used 04/17/24 09:53 PHQ-9: PHQ-9 Score PHQ-9: Total score 0 04/17/24 09:59 Depression Screening Interpretation: Negative Thrive Assessment: Date of Thrive Assessment Date Thrive assessed 03/09/23 04/17/24 09:53 Const General: alert; No acute distress Eyes Conjunctivae: conjunctivae normal Resp Auscultation: clear to auscultation bilaterally Cardio Rate: regular rate Rhythm: regular rhythm GI Inspection: Yes normal to inspection Extrem General: Yes normal to inspection and No edema Assessment and Plan Assessment & Plan (1) Palpitations: Code(s): R00.2 - Palpitations Plan: Patient had a workup with Cardiology Holter as well as echocardiogram both negative results (2) Mammogram declined: Code(s): Z53.20 - Procedure and treatment not carried out because of patient's decision for unspecified reasons (3) Anemia: Code(s): D64.9 - Anemia, unspecified Plan: Continuing to monitor blood work requested (4) Morbid obesity: Code(s): E66.01 - Morbid (severe) obesity due to excess calories Plan: Diet and exercise (5) Generalized anxiety disorder: Comment: Decline any referral for counseling Code(s): F41.1 - Generalized anxiety disorder Plan: Stable (6) LLQ abdominal pain: Code(s): R10.32 - Left lower quadrant pain Plan: Benign exam and reassurance Orders: Orders Comprehensive Met. Panel Today R10.32 - Left lower quadrant pain Vitamin D 25-OH Total Today R10.32 - Left lower quadrant pain Magnesium Today R10.32 - Left lower quadrant pain Phosphorus Today R10.32 - Left lower quadrant pain IRON PROFILE Today R10.32 - Left lower quadrant pain Reticulocyte Count Today R10.32 - Left lower quadrant pain Complete Blood Count Auto Diff Today R10.32 - Left lower quadrant pain Free T4 (Free Thyroxine) Today R10.32 - Left lower quadrant pain Thyroid Stimulating Hormone Today R10.32 - Left lower quadrant pain Vitamin B12 and Folate Today R10.32 - Left lower quadrant pain Lipid Panel Today E78.00 - Pure hypercholesterolemia, unspecified, R10.32 - Left lower quadrant pain Ferritin Today R10.32 - Left lower quadrant pain UA w Microscopic Today R10.32 - Left lower quadrant pain Coding Level of Care Code Est Pt Level 4 (03827) Diagnoses Palpitations R00.2 Mammogram declined Z53.20 Anemia D64.9 Morbid obesity E66.01 Generalized anxiety disorder F41.1 LLQ abdominal pain R10.32
== END 2024-04-17 11:13 | disposition home or self-care (01) ==
PROVIDERS: PCP Internal Medicine; Visit Provider Internal Medicine
DX: R00.2 Palpitations (principal); D64.9 Anemia, unspecified; E66.01 Morbid (severe) obesity due to excess calories; Z68.41 Body mass index [BMI] 40.0-44.9, adult; F41.1 Generalized anxiety disorder; R10.32 Left lower quadrant pain
CPT/HCPCS: 99214

== ENCOUNTER 2024-04-17 10:55 | Outpatient (REF) | payer MEDICARE, MEDICAID, SELFPAY ==
[2024-04-17 11:23] LABS: MANUAL DIFF FLAG NO
[2024-04-17 12:01] LABS: Appearance Urine Cloudy; Color Urine Yellow; Glucose Urine UA Negative (Negative); Leukocyte Esterase Urine Trace (Negative); Nitrite Urine Negative (Negative); PH 7.5 (5.0-9.0); UMIC TRIGGER UA YES; Urine Blood Negative (Negative); Urine Ketones Negative (Negative); Urine Protein Trace mg/dL (Neg-Trace)
[2024-04-17 12:04] LABS: Bacteria Urine 2+ (None Seen); Hyaline Casts Urine 0-2 /LPF (0-2); RBC Urine 0-2 /HPF (0-2); WBC Urine 0-5 /HPF (0-5)
[2024-04-17 12:08] LABS: Basophils Absolute Auto 0.1 X10*3/uL (0.0-0.2); Basophils Percent Auto 0.8 % (0-2); Eosinophils Absolute Auto 0.3 X10*3/uL (0.0-0.4); Eosinophils Percent Auto 3.9 % (0-4); Hematocrit 39.3 % (37.0-47.0); Hemoglobin 12.3 g/dl (12.0-16.0); Imm Gran Abs Auto 0.03 X10*3/uL (0.00-0.03); Imm Gran Pct Auto 0.5 % (0.0-0.4); Immature Retic Fraction 14.3 % (3.0-15.9); Lymphocytes Absolute Auto 1.1 X10*3/uL (1.2-4.9); Lymphocytes Percent Auto 16.8 % (20-40); Mean Corpuscular HGB Conc 31.3 g/dl (31.0-35.0); Mean Corpuscular Volume 70.4 fL (80.0-98.0); Monocytes Absolute Auto 0.6 X10*3/uL (0.1-1.2); Monocytes Percent Auto 9.4 % (2-11); Neutrophils Absolute Auto 4.5 x10*3/uL (2.0-8.3); Neutrophils Percent Auto 68.6 % (45-73); Platelet Count 216 X10*3/uL (160-400); Red Blood Count 5.58 X10*6/uL (4.20-5.50); Red Cell Distribution Width 15.1 % (11.0-16.0); Retic HGB Equivalent 24.5 pg (30.0-35.0); Reticulocyte Percent 0.9 % (0.5-1.8); White Blood Count 6.6 X10*3/uL (4.8-10.8)
[2024-04-17 12:34] LABS: Alanine Aminotransferase 19 U/L (0-31); Albumin Level 4.2 g/dL (3.5-5.0); Alkaline Phosphatase 40 U/L (39-117); Anion Gap 10 (12-20); Aspartate Amino Transferase 12 U/L (5-31); Bilirubin Total 0.8 mg/dL (0.0-1.0); Blood Urea Nitrogen 8 mg/dL (9-16); Calcium 9.7 mg/dL (8.4-10.2); Carbon Dioxide 30 mmol/L (22-29); Chloride 107 mmol/L (96-108); Cholesterol 128 mg/dL (<200); Estimated Glomerular Filt Rate > 60; Glucose Random 88 mg/dL (60-115); HDL Cholesterol 54 mg/dL (>40); Iron 117 mcg/dL (30-160); LDL Cholesterol Calculated 64 mg/dL (<100); Percent Iron Saturation 52 % (15-50); Potassium 4.5 mmol/L (3.3-5.1); Sodium 142 mmol/L (135-145); Total Iron Binding Capacity 226 mcg/dL (228-428); Total Protein 7.3 g/dL (6.5-8.0); Triglycerides 51 mg/dL (<150); Unsaturated Iron Binding 109 ug/dL
[2024-04-17 12:54] LABS: Ferritin 59 ng/mL (10-250); Thyroid Stimulating Hormone 1.38 uIU/mL (0.32-4.0); Vitamin D 25-OH Total 34.6 ng/mL (>30)
[2024-04-17 13:00] LABS: Folate 7.8 ng/mL (> or = 4.0); Vitamin B12 319 pg/mL (200-900)
== END 2024-04-17 10:56 | disposition home or self-care (01) ==
LOC: HO.LAB 10:55
PROVIDERS: PCP Internal Medicine; Visit Provider Internal Medicine
DX: R10.32 Left lower quadrant pain (principal); E78.00 Pure hypercholesterolemia, unspecified
CPT/HCPCS: 36415; 80053; 80061; 81001; 82306; 82607; 82728; 82746; 83540; 83735; 84100; 84439; 84443; 85025; 85045

== ENCOUNTER 2024-05-29 08:10 | Emergency (ER) | payer MEDICARE, MEDICAID, SELFPAY ==
[2024-05-29 08:12] VITALS: BP 154/85; PULSE 67; RESP 16; TEMP 36.4; O2SAT 100; BMI 40.9
--- NOTE | 2024-05-29 09:26 | ED.GENADULT ---
HPI - General Adult General Chief complaint: General Medical Stated complaint: Bug bite 1 week ago Time Seen by Provider: 05/29/24 09:26 Source: patient Mode of arrival: ambulatory Limitations: no limitations History of Present Illness ED Provider: Olga Jennings PA-C HPI narrative: 39 yo female presenting to the ER for evaluation of a reddened bug bite that occurred 1 week ago and is not getting better. She states 1 week ago she was mowing the lawn and felt a sting on her left thigh. She immediately applied topical Benadryl. She reported ongoing pain in the following day her tried to use a bug stinger extractor, sucking yellowish fluid out of the center of the bug bite. She states she has been monitoring the area at home but it has gotten worse, more red and now tingly. The area redness has gotten larger. She denies any fevers or chills. She denies any known tick bite. She states it felt like a sting at the time although she not see if it was a bee or a different type of insect. MD complaint: right eye pain Onset (ago): hour(s) Location: eyes Radiation: non-radiation Severity: moderate Quality: burning and sharp Pain Consistency: constant Relieving factors: cold therapy Exacerbating factors: none Associated symptoms: denies other symptoms Treatments prior to arrival: none Related Data Home Medications ?Medication ?Instructions ?Recorded ?Confirmed multivitamin 1 tab PO DAILY 09/03/20 04/17/24 zinc 50 mg tablet 50 mg PO DAILY 12/01/22 04/17/24 polish herbs PO 10/24/23 04/17/24 K complete K1 +MK4 + Mk7 1 cap PO 04/17/24 04/17/24 Previous Rx's ?Medication ?Instructions ?Recorded ascorbic acid (vitamin C) 1,000 mg 1,000 mg PO DAILY #90 tabs 10/24/23 tablet,extended release (Vitamin C ER) cholecalciferol (vitamin D3) 25 25 mcg PO DAILY #90 caps 11/23/23 mcg (1,000 unit) capsule ferrous fumarate 324 mg (106 mg 324 mg PO DAILY #90 tabs 04/16/24 iron) tablet doxycycline hyclate 100 mg tablet 100 mg PO BID #14 tabs 05/29/24 Allergies Allergy/AdvReac Type Severity Reaction Status Date / Time Penicillins [PCN] Allergy Intermediate HIVES Verified 05/29/24 08:15 Review of Systems Review of Systems: Yes all other systems are reviewed and are negative [facility]LY [facility] Past Medical History Medical History Vitamin D deficiency Mass of multiple sites of right breast Right shoulder injury Complex cyst of left ovary Anxiety GERD (gastroesophageal reflux disease) H. pylori duodenitis Thyroid nodule Thalassemia carrier Ventral incisional hernia Complex regional pain syndrome Fibromyalgia Surgical History History of lumpectomy of right breast (12/11/22) History of removal of cyst History of umbilical hernia repair Family History Family History Mother Thyroid cancer Maternal Grandfather Lung cancer Paternal Grandfather Heart attack Social History Social History Housing: House Unable to assess alcohol history related to: Unknown Alcohol intake: never Patient Tobacco Use Status: Former Tobacco user Years Smoked: pt states quit 2010 Smoked in Last 30 Days: No e-Cigarette/Vaping Use: Never Used Second Hand Smoke Exposure: No Advance Directives: No Advance Directives Information Provided: Yes Do you have a plan to hurt others: No Plan service: No Current occupational status: disabled Current occupation: pt on disability Sexual orientation: Straight/Heterosexual Gender identity: Female Cognitive needs: No Hearing needs: No Vision needs: No Physical Exam ED Vital Signs: Vital Signs - 24 hr 05/29/24 08:12 05/29/24 09:51 Temperature 97.6 F 97.6 F Pulse Rate 67 67 Respiratory Rate 16 16 Blood Pressure 154/85 H 139/80 Pulse Oximetry 100 Oxygen Delivery Method Room Air BMI result Body Mass Index 40.9 Appearance: Alert. Oriented X3. No acute distress. HEENT: normal inspection CVS: Normal heart rate and rhythm. Pulses normal. Respiratory: No respiratory distress. Skin: Skin warm and dry. Normal skin color. Normal skin turgor. No rashes. Extremities: left distal, lateral thigh with a 10cm area of well demarcated erytehma and warmth with a central scab. no induration or fluctuance. Neuro: Oriented X 3. No motor deficit. No sensory deficit. Medical Decision Making Medical Decision Making [facility] Narrative: 39-year-old female presents the ER for evaluation of a reddened, warm to area on her left lateral thigh after she was bit by a bug 1 week ago. She did not have any retained tics that required removal. She describes it as a sting at the time. Exam and clinical presentation are most consistent with cellulitis. No evidence of abscess. Low suspicion for MRSA infection. No systemic signs of infection. Will treat with oral antibiotics. She has significant allergy to penicillin, will prescribe doxycycline that will cover concern pathogens. She is stable for discharge home. Return precautions were discussed. The area was marked with a skin marker, she was advised to monitor for spreading erythema and warmth. She will follow-up with her PCP. Stable for discharge home Differential Diagnosis Differential Diagnoses: The differential diagnosis associated with the presentation includes Cellulitis, erysipelas, Lyme disease with ECM rash, abscess External Record Review External record reviewed: Prior outpatient labs Prescription Management I considered prescription management with: Pain Medication and Antibiotic Critical Care Time Critical Care Time Critical Care Time: No Discharge Plan Discharge Clinical Impression: Cellulitis Patient Disposition: Home, Self-Care Instructions: Cellulitis (ED), Warm Compress or Soak (ED) Additional Instructions: Take the prescribed antibiotics as directed, complete the entire course and do not miss any doses Stay out of the direct sunlight while on this antibiotic as it can cause a rash Use warm compresses 3 times per day If you develop new or worsening symptoms call 911 or come back to the ER for further evaluation. Prescriptions: New doxycycline hyclate 100 mg tablet 100 mg PO BID Qty: 14 0RF No Action cholecalciferol (vitamin D3) 25 mcg (1,000 unit) capsule 25 mcg PO DAILY Qty: 90 3RF ferrous fumarate 324 mg (106 mg iron) tablet 324 mg PO DAILY Qty: 90 0RF zinc 50 mg Tablet 50 mg PO DAILY multivitamin Tablet 1 tab PO DAILY Vitamin C 1,000 mg tablet extended release 1,000 mg PO DAILY Qty: 90 1RF polish herbs PO K complete K1 +MK4 + Mk7 1 cap PO Patient Comments: phytonadione, Menaquilone and Menaleltrenone Interventions: ED Discharge Assessment Last Done: 05/29/24 09:51 Discharge Date/Time: 05/29/24 09:52 Print Language: Arabic
[2024-05-29 09:51] VITALS: BP 139/80; PULSE 67; RESP 16; TEMP 36.4
== END 2024-05-29 09:52 | disposition home or self-care (01) ==
PROVIDERS: Emergency Provider Emergency Medicine Emergency Medical Services; PCP Internal Medicine
DX: L03.116 Cellulitis of left lower limb (principal); M79.652 Pain in left thigh
CPT/HCPCS: 99283; 99284

== ENCOUNTER 2025-03-23 09:20 | Outpatient (REF) | payer MEDICARE, MEDICAID, SELFPAY ==
--- OUTSIDE RECORDS SUMMARY | 2025-03-23 09:29 | XMS_ITS | Referral Summary ---
Author Organization [facility] Address [address] [place] [address] Care Team Providers Care Line Walker Name Role Phone Thomas Boles Primary Care Provider [phone] Allergies No known active allergies Medications No known medications Active Problems Problem Noted Date Diagnosed Date Threatened 06/18/2014 Multiple joint pain 04/03/2014 Acute sinusitis 03/09/2014 Abdominal pain, RUQ (right upper quadrant) 03/09 Immunizations Immunization Administration Dates Next Due Tetanus Toxoid, Reduced Diph theria Toxoid, and Acellular Pertussis Vaccine, Adsorbed 04/13/2015 Social History Tobacco Use Types Packs/Day Years Used Date Smoking Tobacco: Former Comments:: Comments Unknown Sex and Gender Information Value Date Recorded Sex Assigned at Not on file Legal Sex Female 3:43 AM EDT Gender Identity Not on file Sexual Orientation Not on file Last Filed Vital Signs Vital Sign Reading Time Taken Comments Blood Pressure 124/85 06/13/2021 3:28 PM EDT Pulse 68 06/13/2021 3:28 PM EDT Temperature 36.8 ??C (98.3 ??F) 06/13/2021 3:28 PM ED T Respiratory Rate - - Oxygen Saturation - - Inhaled Oxygen Concentration - - Weight 112.5 kg (248 lb) 07/13/2015 3:05 PM EDT Height 160 cm (5' 3 ) 07/13/2015 3:05 PM EDT Body Mass Index 43.93 07/13/2015 3:05 PM EDT Plan of Treatment Not on file Insurance MEDICARE [facility] Care Teams Line Walker Relationship Specialty Start Date End Date Thomas Boles [address] [place] [address] dr Candis Chirinos, [place] [id number] PCP - General Internal Medicine 06/06/21
--- OUTSIDE RECORDS SUMMARY | 2025-03-23 09:29 | XMS_ITS | Clinical Summary ---
Author Organization [facility] Address [address] [place] [address] Care Team Providers Care Health Analyst Name Role Phone Thomas Boles Primary Care Provider [phone] Allergies No known active allergies Medications No known medications Active Problems Problem Noted Date Diagnosed Date Threatened 06/18/2014 Multiple joint pain 04/03/2014 Acute sinusitis 03/09/2014 Abdominal pain, RUQ (right upper quadrant) 03/09 Immunizations Immunization Administration Dates Next Due Tetanus Toxoid, Reduced Diph theria Toxoid, and Acellular Pertussis Vaccine, Adsorbed 04/13/2015 Family History Medical History Relation Name Comments Other Mother Family History of migraine headaches Relation Name Status Comments Mother Social History Tobacco Use Types Packs/Day Years [...] 07/13/2015 3:05 PM EDT Plan of Treatment Health Maintenance Due Date Last Done Comments Cervical Cancer Screening 1983 HIV Screening 1983 HPV and Pap Smear 1983 Pap Smear 1983 Varicella Vaccines (1 of 2 - 13+ 2-dose series) 1996 Hepatitis B Vaccines (1 of 3 - 19+ 3-dose series) 2002 COVID-19 Vaccine (1 - 2023-2 5 season) 2024 Alcohol/Substance Use Screening 11/12/2024 Depression Screening and Follow-Up 11/12/2024 Social Drivers of Health Annual Screening 11/12/2024 DTaP,Tdap,and Td Vaccines (3 - Td or Tdap) 04/13/2025 04/13/2015, 05/03/2012 Influenza Vaccine (Season Ended) 2025 07/18/2012 RSV Vaccine (60+ years old and patients) (1 - 1-dose 75+ series) 2058 Pneumococcal Vaccine: Pediatric (0-5 Years) and At-Risk Patients (6-50 Years) Aged Out No longer eligible based on patient's age to complete this topic Insurance MEDICARE [facility] Care Teams Health Analyst Relationship Specialty Start Date End Date Thomas Boles [address] [place] [address] [place] [address] PCP - General Internal Medicine 06/06/21
[2025-03-23 09:48] LABS: Appearance Urine Cloudy; Color Urine Dark Yellow; Glucose Urine UA Negative (Negative); Leukocyte Esterase Urine Small (1+) (Negative); Nitrite Urine Negative (Negative); Specific Gravity - Urine >= 1.030 (1.005-1.025); UMIC TRIGGER UACC YES; Urine Blood Trace (Negative); Urine Ketones Trace mg/dL (Negative); Urine Protein 30 (1+) mg/dL (Neg-Trace)
[2025-03-23 09:49] LABS: Basophils Absolute Auto 0.1 X10*3/uL (0.0-0.2); Basophils Percent Auto 1.7 % (0-2); Eosinophils Absolute Auto 0.2 X10*3/uL (0.0-0.4); Hemoglobin 11.8 g/dl (12.0-16.0); Immature Retic Fraction 3.4 % (3.0-15.9); Lymphocytes Percent Auto 28.7 % (20-40); MANUAL DIFF FLAG SCAN; Mean Corpuscular HGB Conc 31.9 g/dl (31.0-35.0); Mean Corpuscular Hemoglobin 21.5 pg (27.0-33.0); Mean Corpuscular Volume 67.4 fL (80.0-98.0); Monocytes Absolute Auto 0.4 X10*3/uL (0.1-1.2); Monocytes Percent Auto 9.9 % (2-11); Neutrophils Percent Auto 54.7 % (45-73); Platelet Count 251 X10*3/uL (160-400); Red Blood Count 5.49 X10*6/uL (4.20-5.50); Red Cell Distribution Width 15.5 % (11.0-16.0); Retic HGB Equivalent 24.4 pg (30.0-35.0); Reticulocyte Percent 0.2 % (0.5-1.8); Reticulocytes Absolute 0.012 X10*6/uL (0.026-0.095); SCAN SMEAR FLAG 1; White Blood Count 3.6 X10*3/uL (4.8-10.8)
[2025-03-23 09:53] LABS: Bacteria Urine 2+ (None Seen); Hyaline Casts Urine 0-2 /LPF (0-2); UACC Culture Trigger YES
[2025-03-23 10:02] LABS: Estimated Average Glucose 117 mg/dL; Hemoglobin A1C 119.4748 umol/L; Hemoglobin A1c % 5.7 % (<6.0); Total Hemoglobin (HGBA1C) 3060.4717 umol/L
[2025-03-23 10:43] LABS: SLIDE REVIEW VERIFIED
[2025-03-23 10:51] LABS: Alanine Aminotransferase 29 U/L (0-31); Albumin Level 4.1 g/dL (3.5-5.0); Alkaline Phosphatase 44 U/L (39-117); Anion Gap 10 (12-20); Aspartate Amino Transferase 21 U/L (5-31); Bilirubin Total 0.6 mg/dL (0.0-1.0); Blood Urea Nitrogen 10 mg/dL (9-16); Calcium 9.3 mg/dL (8.4-10.2); Carbon Dioxide 28 mmol/L (22-29); Chloride 108 mmol/L (96-108); Cholesterol 105 mg/dL (<200); Estimated Glomerular Filt Rate > 60; Glucose Random 95 mg/dL (60-115); HDL Cholesterol 38 mg/dL (>40); Iron 95 mcg/dL (30-160); LDL Cholesterol Calculated 59 mg/dL (<100); Percent Iron Saturation 51 % (15-50); Potassium 4.1 mmol/L (3.3-5.1); Sodium 142 mmol/L (135-145); Total Iron Binding Capacity 185 mcg/dL (228-428); Total Protein 7.3 g/dL (6.5-8.0); Triglycerides 42 mg/dL (<150); Unsaturated Iron Binding 90 ug/dL
[2025-03-23 10:54] LABS: Ferritin 160 ng/mL (10-250); Free T4 (Free Thyroxine) 1.13 ng/dL (0.71-1.85); Thyroid Stimulating Hormone 1.48 uIU/mL (0.32-4.0); Vitamin D 25-OH Total 31.3 ng/mL (>30)
[2025-03-23 11:18] LABS: Folate 10.6 ng/mL (> or = 4.0); Vitamin B12 336 pg/mL (200-900)
== END 2025-03-23 09:21 | disposition home or self-care (01) ==
LOC: HO.LAB 09:20
PROVIDERS: PCP Internal Medicine; Visit Provider Internal Medicine
DX: F41.1 Generalized anxiety disorder (principal); D64.9 Anemia, unspecified; E78.00 Pure hypercholesterolemia, unspecified; R30.0 Dysuria; Z13.1 Encounter for screening for diabetes mellitus
CPT/HCPCS: 36415; 80053; 80061; 81001; 82306; 82607; 82728; 82746; 83036; 83540; 84439; 84443; 85025; 85045; 87086

== ENCOUNTER 2025-03-24 12:58 | Outpatient (AMB) | payer MEDICARE, MEDICAID, SELFPAY ==
--- NOTE | 2025-03-24 13:03 | AM.OFFVISMDC ---
Intake Vital Signs 03/24/25 13:04 Height 5 ft 3 in Weight 236 lb BMI 41.8 BP 134/72 Blood Pressure Location Lt brachial Position Sitting Pulse 80 Pulse Source Pulse Oximeter Pulse Oximetry (%) 98 Oxygen Delivery Method Room Air Intake Visit Reasons: AWV/breathing problems Allergies Penicillins [PCN] Allergy (Intermediate, Verified 03/24/25 13:04) HIVES Medication List - Last Reconciled 03/24/25 by Thomas Boles MD ascorbic acid (vitamin C) ER (Vitamin C ER) 1,000 mg PO DAILY [salvadorean herbs, Ling and turmeric PO] cholecalciferol (vitamin D3) 25 mcg PO DAILY ferrous fumarate 324 mg PO DAILY [K complete K1 +MK4 + Mk7 1 cap PO] multivitamin 1 tab PO DAILY nitrofurantoin monohyd/m-cryst 100 mg (Macrobid) 100 mg PO Q12H 7 days zinc 50 mg PO DAILY HPI AWV/breathing problems HPI Details Neurology Dr. Maya cardiology Dr. Gilman Ophthalmology/Optometry [facility] Orthopedics Dr. Connolly, surgeon Dr. Rogers. Podiatry , Gyne [facility] Neurosurgeon [facility] Dr. Good Bang nausea. noted [facility] Medical History (Updated 03/24/25 @ 13:26 by Thomas Boles MD) Anxiety Arm pain, right Knee pain, right Pelvic pain in female Upper respiratory tract infection Locking of left knee Palpitations LLQ abdominal pain Changes in vision Vitamin D deficiency Mass of multiple sites of right breast Right shoulder injury Complex cyst of left ovary GERD (gastroesophageal reflux disease) H. pylori duodenitis Thyroid nodule Thalassemia carrier Ventral incisional hernia Complex regional pain syndrome Fibromyalgia Surgical History History of lumpectomy of right breast (12/11/22) History of removal of cyst History of umbilical hernia repair Family History Mother Thyroid cancer Maternal Grandfather Lung cancer Paternal Grandfather Heart attack Social History Housing: House Unable to assess alcohol history related to: Unknown Alcohol intake: never Patient Tobacco Use Status: Former Tobacco user Years Smoked: pt states quit 2009 e-Cigarette/Vaping Use: Never Used Second Hand Smoke Exposure: No service: No Current occupational status: disabled Current occupation: pt on disability Sexual orientation: Straight/Heterosexual Gender identity: Female Cognitive needs: No Hearing needs: No Vision needs: No Female Reproductive History Menstrual Age of Menarche: 10 Questionnaire Medicare Wellness Checkup What is your age?: 65-69 (18-64) What gender do you identify with?: female During the past 4 weeks, how much have you been bothered by emotional problems such as feeling anxious, depressed, irritable, sad or downhearted, and blue?: moderately During the past 4 weeks, has your physical & emotional health limited your social activities with family, friends, neighbors, or groups?: slightly During the past 4 weeks, how much bodily pain have you generally had?: mild pain During the past 4 weeks, was someone available to help you if you needed & wanted help?: yes, as much as I wanted During the past 4 weeks, what was the hardest physical activity you could do for at least 2 minutes?: moderate Can you get to places out of walking distance without help? (For eg., can you travel alone on buses, taxis or drive your car?): Yes Can you go shopping for groceries or clothes without someone's help?: Yes Can you prepare your own meals?: Yes Can you do your housework without help?: Yes Because of any health problems, do you need the help of another person with your personal care needs such as eating, bathing, dressing or getting around the house?: Yes Can you handle your own money without help?: Yes During the past 4 weeks, how would you rate your health in general?: fair During the past 4 weeks how have things been going for you?: good & bad parts about equal Are you having difficulties driving your car?: no Do you always fasten your seat belt when you are in a car?: yes, usually During past 4 weeks, have you been bothered by the following: never: Sexual problems?, Teeth or denture problems? and Problems using the telephone?, seldom: Trouble eating well? and often: Falling or dizzy when standing up and Tiredness or fatigue? Have you fallen 2 or more times in the past year?: No Are you afraid of falling?: Yes Are you a smoker?: no During the past 4 weeks, how many drinks of wine, beer, or other alcoholic beverages did you have?: no alcohol at all Do you exercise for about 20 minutes 3 or more times a week?: yes, most of the time Have you been given information to help with the following?: no: Hazards in your house that might hurt you? and no: Keeping track of your medications? How often do you have trouble taking medicines the way you have been told to take them?: I always take medicine as prescribed How confident are you that you can control & manage most of your health problems?: not very confident What is your race?: White PHQ-9 Over the last 2 weeks, how often have you been bothered by any of the following problems? 1. Little interest or pleasure in doing things: several days 2. Feeling down, depressed, or hopeless: several days 3. Trouble falling or staying asleep, or sleeping too much: more than half the days 4. Feeling tired or having little energy: nearly every day 5. Poor appetite or overeating: not at all 6. Feeling bad about yourself - or that you are a failure or have let yourself or your family down: several days 7. Trouble concentrating on things, such as reading the newspaper or watching television: several days 8. Moving or speaking so slowly that other people could have noticed. Or the opposite - being so fidgety or restless that you have been moving around a lot more than usual: not at all 9. Thoughts that you would be better off or of hurting yourself in some way: not at all Total score: 9 Depression Screening Interpretation: Positive Depression Screening Done: Yes 25563 - PHQ-9 Billing: Yes Source: Developed by Drs. Cristian Valdivia, Nehal Galindo, Paramjit Cerrato and colleagues, with an educational xiao from [employer]. Thrive Questionnaire Date Thrive assessed: 03/24/25 I am a: Patient What is your living situation today?: I have a steady place to live Within the past 12 months, did the food you bought not last and you didn't have the money to get more?: Never true Within the past 12 months, did you worry whether your food would run out before you got money to buy more?: Never true Do you have trouble paying for medicines?: No Do you have trouble getting transportation to medical appointments?: No Do you have trouble paying your heating and electricity bill?: No Do you have trouble taking care of your child, family member or friend?: No Do you have trouble with day-to-day activities such as bathing, preparing meals, shopping, managing finances, etc.?: No Are you currently unemployed and looking for a job?: No Are you interested in more education?: No Please select the resources that you would like help with: None Currently or been in a relationship where the following occur: No concerns reported THRIVE Score: 0 AUGUSTINE-7 AMB Questionnaire AUGUSTINE-7 Date AUGUSTINE - 7 assessed: 03/24/25 (pt DX with situational anxiety ) Feeling nervous, anxious, or on edge: 2 = More than half the days Not being able to stop or control worryin = More than half the days Worrying too much about different things: 2 = More than half the days Trouble relaxin = More than half the days Being so restless that it is hard to sit still: 3 = Nearly every day Becoming easily annoyed or irritable: 3 = Nearly every day Feeling afraid as if something awful might happen: 2 = More than half the days Total AUGUSTINE-7 score (0-4 normal; 5-9 mild; 10-14 moderate; 15-21 severe): 16 Source: Developed by Drs. Cristian Valdivia, Nehal Galindo, Paramjit Cerrato and colleagues, with an educational xiao from [employer]. AUGUSTINE-7 Assessment Billing AUGUSTINE-7 Assessment Tool: AUGUSTINE-7 Assessment 72012 Review of Systems Const Denies poor appetite and Denies weakness Eyes Denies no additional complaints ENT Reports Normal hearing present, Denies dizziness, Denies nasal congestion, Denies tinnitus and Denies sore throat Card Denies chest pain, Denies syncope, Denies rapid heart rate and Denies dyspnea Resp Denies cough and Denies dyspnea GI Denies change in stool character, Reports constipation, Denies diarrhea, Denies nausea and Denies vomiting Denies urinary frequency, Denies difficulty voiding and Denies dysuria Neuro Reports Normal hearing present, Denies confusion, Denies dizziness, Denies syncope and Denies weakness Psych Denies confusion Physical Exam Vital Signs: Oxygen Delivery Method Room Air 03/24/25 13:04 Const General: No confusion Orientation/consciousness: No confusion HEENT Head: Yes normocephalic Ears: external ears normal and TM's normal bilaterally Face and sinus: Yes normal facial exam Mouth: moist mucous membranes Throat: Yes tonsils normal Eyes Conjunctivae: conjunctivae normal Pupils: Equal, round and reactive pupils present and Pupil accommodation reflex normal Direct Ophthalmoscopy: normal light reflex Neck Neck: No lymphadenopathy Thyroid: Thyroid normal Chest Chest palpation & inspection: normal inspection of the chest Resp Effort & Inspection: normal respiratory effort and no audible wheezes Auscultation: clear to auscultation bilaterally, no crackles, no wheezes and lung sounds not diminished Cardio Rate: regular rate Rhythm: regular rhythm Peripheral pulses: radial pulses present and dorsalis pedis present GI Palpation (GI): no masses Auscultation: normal bowel sounds and normoactive bowel sounds Rectal Exam - Female: deferred Skin General skin exam: no rashes or lesions noted Rashes: no rashes Neuro General: No confusion Cranial nerves: Yes Equal, round and reactive pupils present and Yes Normal hearing present Cognition (Neuro): normal cognition Gait exam (Neuro): Normal gait present Motor exam (neuro): 5/5 motor strength present throughout Deep tendon reflexes (DTR's): Right brachioradialis reflex intensity grade: 2+, Left brachioradialis reflex intensity grade: 2+, Right patellar reflex intensity grade: 2+ and Left patellar reflex intensity grade: 2+ Extrem General: No edema Assessment & Plan Assessment & Plan (1) Morbid obesity: Code(s): E66.01 - Morbid (severe) obesity due to excess calories Plan: Diet and exercise (2) GERD (gastroesophageal reflux disease): Code(s): K21.9 - Gastro-esophageal reflux disease without esophagitis Qualifiers: Esophagitis presence: without esophagitis Qualified Code(s): K21.9 - Gastro-esophageal reflux disease without esophagitis Plan: Avoid the foods that causes that usually spicy foods, tomato products, juices, coffee, soda and foods that your sensitive to. After eating do not lie down, allow 3-4 hours before in lie down. And keep the head of bed above 30 degrees to avoid the acid from going up. (3) Generalized anxiety disorder: Comment: Decline any referral for counseling Code(s): F41.1 - Generalized anxiety disorder Plan: Stable (4) Mammogram declined: Comment: 03/2025 declined Code(s): Z53.20 - Procedure and treatment not carried out because of patient's decision for unspecified reasons Plan: Patient is reminded about this. (5) Medicare annual wellness visit, subsequent: Code(s): Z00.00 - Encounter for general adult medical examination without abnormal findings Plan: Patient is advised to eat healthy, keep well hydrated, keep active and have adequate sleep. (6) Thalassemia carrier: Comment: [facility] Code(s): D56.3 - Thalassemia minor Plan History of Present Illness The patient is a 39-year-old female presenting primarily for her annual wellness examination. She has a significant medical history that includes obesity, GERD, generalized anxiety disorder, and chronic thalassemia trait. Recently, she noted unresolved changes following a bug bite in May initially treated as cellulitis with doxycycline. Lab results indicated mild leukopenia and microcytic anemia, yet she complains of continued weight gain despite increased physical activity and dietary adjustments. Recent tests also reflect a quantitative drop in HDL cholesterol from her last evaluations. Additionally, she continues to experience palpitations, especially noticeable when at rest, although these have been evaluated and advised as a benign manifestation. This lack of specific diagnostic confirmation allows the patient to maintain routines without chest pain or notable respiratory concerns, and her upper GI symptoms have been notably subdued. Gastrointestinal irregularities, with uncomfortable but untroublesome bowel movements and no significant cardiac outputs, persist alongside a gradual GI discomfort. Socially, the patient dedicates much of her activity to home-based education for her children and endeavors to integrate exercise, reaching substantial daily physical targets. Through consistent measures, she remains without formalized dietary supplements but notes challenges when attempting traditional interventions due to financial and insurance-related constraints. Her healthcare trajectories feature multidisciplinary consultations and visual diagnostics correcting past errors, indicating a network of ongoing health oversight. Health Maintenance - Annual wellness visit completed. - Screening for diabetes via Hemoglobin A1c at 5.7% (previously 5.3%). - Addressed needs for mammography despite patient decline. - Counseling on diet and exercise, focusing on managing weight and optimizing HDL cholesterol levels. - Discussed implications of low HDL cholesterol and necessary lifestyle adjustments to elevate these. - Encouraged continuation of stepped exercise regimen and reviewed adequacy concerning desired heart rate increment to address obesity. - Reviewed blood work including hemoglobin levels and discussed mild anemia management. - Discussed the significance of smoking cessation though not applicable to current health status. - Addressed allergy symptoms and potential allergen exposure, with implications on respiratory health. - Revised need for further laboratory diagnostics to explore hormonal disturbances maintaining weight. Social History - Homeschooling her children, daily routine includes a structured exercise plan averaging 5 to 7 miles walked. - Attempted dietary adaptations to reduce sugar intake switching to cane sugar for beverages. - Negative smoking status. - She notes emotional stress related to weight management despite active modifications in diet and physical activity. - The patient does not vaccinate and is cautious regarding pharmaceutical alternatives. - The presented aversion to high-cost health interventions signals socioeconomic consideration regarding care accessibility. Review of Systems - Cardiovascular: Reports palpitations. Denies chest pain. - Respiratory: Denies shortness of breath. - Gastrointestinal: Denies heartburn. Reports frequent bowel movements and GI discomfort. - Neurological: Denies any past occurrences of thyroid issues. - Dermatological/Allergies: Reports sensations similar to menthol in the oral region since November. 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 Physical Exam General: Cooperative, morbidly obese, healthy appearing, comfortable, no acute distress and well developed Orientation: Patient oriented x3 Limitations: No limitations Head: Normal to inspection Ears: Hearing grossly normal bilaterally Nose: Normal external nose present Face and sinus: Normal facial exam Eyes: Appearance normal, both eyes and all related structures Neck: Normal visual inspection and Yes full ROM Respiratory: Normal respiratory effort and able to speak in complete sentences. Clear to auscultation bilaterally Cardiovascular: Regular rate and rhythm. Normal S1 and S2 GI: Normal to inspection. Soft to palpation and nontender Skin: No rashes or lesions noted Neuro: Patient oriented x3 Extremities: Normal to inspection Results - Labs: Mild leukopenia, microcytic anemia with hemoglobin 11.8 g/dL, normal platelet count. - Hemoglobin A1c: 5.7% - HDL Cholesterol: 38 mg/dL, decreased from 54 mg/dL. - LDL Cholesterol: 59 mg/dL - Electrolytes, renal function, liver function, vitamin B12, folic acid, and vitamin D levels within normal limits. Plan In this visit, we have reviewed the recurrent palpitations with no immediate red flags noted for emergent concern. We shall continue monitoring and evaluating if symptoms advance or complicate. The management of microcytic anemia related to thalassemia trait involves continued iron supplementation with keen observation for effects on gastrointestinal transit, allowing adjustments prn. Notably, a decline in HDL cholesterol is concerning, yet amenable through advanced lifestyle changes geared towards incremental physical activity improvement. Tackling the emergent gastrointestinal complaints requires optimizing bowel health via dietary interventions, although current reports are reassuring in severe manifestations. Engaging hormone-related assessments to elucidate unexplained weight trends remains feasible yet tethered to resource availability. Renewing iron therapy pertains to anemia, paralleled by pulling tactical weight management routes potentially benefiting from targeted metabolic evaluations contingent on socioeconomic statutes. Monitoring the patient?s metabolic profile over time shall furnish data necessary for adaptive health strategies. Patient was informed and verbally consented to the use of an ambient scribe for clinic note documentation during this visit. Discussion Notes I discussed notable aspects of this annual visit, drawing attention to concerns including anemia and declining HDL. Emphasis on palpitations if progressive necessitates prompt reassessment, though subsisting on benign investigations. Addressing microcytosis involves reassurance on current non-elevated concering anemia levels, suggesting actionable iron therapy amidst noted complications. The fluctuation in cholesterol readings brings forth tailored advisory to amplify exercise modality conducive to tangible HDL elevation. Discussions on gastrointestinal trends encompass maintaining par for already embraced homeostatic bowel strategies unless intensifying. Further, a putative hormone imbalance contributing to weight struggles predicates matures on available insurance overtures, tempering referring physician or investigatory engagement directive deficits. Renewal of iron was formulated alongside forwarding comprehensive weight management endorsements encapsulating her lifestyle conscience. Finally, a delineation of expectancies concerning these interventions was laid, promoting continuity in both preventative and responsive medical care. Patient Instructions - Keep your current exercise routine, but try to include more vigorous walking to raise your HDL levels. - Continue taking your iron supplements as prescribed to address anemia. - Monitor your palpitations, and seek care if they become more frequent or change in nature. - Follow a balanced diet and try to reduce sugar intake to prevent sports in blood glucose or A1c elevations. - Consult with me about any unusual symptoms related to your gastrointestinal or oral health. - Please ensure you carry out any tests or reassessments as discussed, particularly regarding hormonal evaluations. - Report any changes or concerns about your weight management strategies as needed for further adjustments. Orders: Referrals Medical Weight Management Referral E66.01 - Morbid (severe) obesity due to excess calories Quality Reporting (2019) Depression/Bipolar (159/160/161/177) PHQ-9: Total score: 9 Coding Level of Care Code Medicare Subsequent (G0439) Diagnoses Morbid obesity E66.01 Gastroesophageal reflux disease without esophagitis K21.9 Esophagitis presence: without esophagitis Generalized anxiety disorder F41.1 Mammogram declined Z53.20 Medicare annual wellness visit, subsequent Z00.00 Thalassemia carrier D56.3 Additional Codes AUGUSTINE-7 Assessment Billing - AUGUSTINE-7 Assessment Tool: AUGUSTINE-7 Assessment 79714 ([id number]) PHQ-9 - 29664 - PHQ-9 Billing: Yes ([id number])
[2025-03-24 13:04] VITALS: BP 134/72; PULSE 80; O2SAT 98; BMI 41.8
--- OUTSIDE RECORDS SUMMARY | 2025-03-24 14:02 | XMS_ITS | Referral Summary ---
Author Organization [facility] Address [address] [place] [address] Care Team Providers Care Dictaphone Operator Name Role Phone Thomas Boles Primary Care Provider Allergies No known active allergies Medications No [...] of Treatment Not on file Insurance MEDICARE [facility] Care Teams Dictaphone Operator Relationship Specialty Start Date End Date Thomas Boles [address] [place] [address] dr Candis Chirinos, [place] [id number] PCP - General Internal Medicine 06/06/21
--- OUTSIDE RECORDS SUMMARY | 2025-03-24 14:02 | XMS_ITS | Clinical Summary ---
Author Organization [facility] Address [address] [place] [address] Care Team Providers Care Bladder Changer Name Role Phone Thomas Boles Primary Care [...] Insurance MEDICARE [facility] Care Teams Bladder Changer Relationship Specialty Start Date End Date Thomas Boles [address] [place] [address] [place] [id number] PCP - General Internal Medicine 06/06/21
== END 2025-03-24 13:46 | disposition home or self-care (01) ==
LOC: HO.HMCH 12:59
PROVIDERS: PCP Internal Medicine; Visit Provider Internal Medicine
DX: Z00.00 Encounter for general adult medical examination without abnormal findings (principal); E66.01 Morbid (severe) obesity due to excess calories; Z68.41 Body mass index [BMI] 40.0-44.9, adult; K21.9 Gastro-esophageal reflux disease without esophagitis; F41.1 Generalized anxiety disorder; Z53.20 Procedure and treatment not carried out because of patient's decision for unspecified reasons; D56.3 Thalassemia minor

== ENCOUNTER → 2025-03-24 12:58 | Outpatient (BNVA) | payer MEDICARE, MEDICAID, SELFPAY | PROVIDERS: PCP Internal Medicine; Visit Provider Internal Medicine | DX: Z00.00 Encounter for general adult medical examination without abnormal findings (principal); E66.01 Morbid (severe) obesity due to excess calories; Z68.41 Body mass index [BMI] 40.0-44.9, adult; K21.9 Gastro-esophageal reflux disease without esophagitis; F41.1 Generalized anxiety disorder; D56.3 Thalassemia minor; Z71.3 Dietary counseling and surveillance | CPT/HCPCS: 96127 ==

== ENCOUNTER 2025-03-28 09:52 | Emergency (ER) | payer MEDICARE, MEDICAID, SELFPAY ==
--- NOTE | 2025-03-28 | ECG_ITS ---
Test Reason : RODRISA Blood Pressure : */* mmHG Vent. Rate : 71 BPM Atrial Rate : 71 BPM P-R Int : 142 ms QRS Dur : 70 ms QT Int : 370 ms P-R-T Axes : 53 11 17 degrees QTcB Int : 402 ms Sinus rhythm with marked sinus arrhythmia Cannot rule out Anterior infarct , age undetermined Abnormal ECG No previous ECGs available Referred By: Generic ED Physician Electronically Signed By: CECILE SAHA MD
[2025-03-28 10:01] VITALS: BP 141/58; PULSE 102; RESP 18; TEMP 36.9; O2SAT 98; BMI 42.3
[2025-03-28 10:39] LABS: MANUAL DIFF FLAG NO
[2025-03-28 10:43] LABS: Basophils Absolute Auto 0.1 X10*3/uL (0.0-0.2); Eosinophils Absolute Auto 0.3 X10*3/uL (0.0-0.4); Eosinophils Percent Auto 4.8 % (0-4); Hematocrit 38.5 % (37.0-47.0); Hemoglobin 12.4 g/dl (12.0-16.0); Imm Gran Abs Auto 0.03 X10*3/uL (0.00-0.03); Imm Gran Pct Auto 0.5 % (0.0-0.4); Lymphocytes Percent Auto 16.6 % (20-40); Mean Corpuscular HGB Conc 32.2 g/dl (31.0-35.0); Mean Corpuscular Hemoglobin 21.6 pg (27.0-33.0); Mean Corpuscular Volume 67.1 fL (80.0-98.0); Mean Platelet Volume 10.4 fL (9.4-12.3); Monocytes Absolute Auto 0.4 X10*3/uL (0.1-1.2); Neutrophils Absolute Auto 4.1 x10*3/uL (2.0-8.3); Neutrophils Percent Auto 70.1 % (45-73); Platelet Count 300 X10*3/uL (160-400); Red Blood Count 5.74 X10*6/uL (4.20-5.50); White Blood Count 5.9 X10*3/uL (4.8-10.8)
[2025-03-28 10:46] LABS: Appearance Urine Cloudy; Color Urine Yellow; Glucose Urine UA Negative (Negative); Leukocyte Esterase Urine Trace (Negative); Nitrite Urine Negative (Negative); UMIC TRIGGER UACC YES; Urine Blood Negative (Negative); Urine Ketones Trace mg/dL (Negative); Urine Protein Trace mg/dL (Neg-Trace)
[2025-03-28 10:55] LABS: Alanine Aminotransferase 28 U/L (0-31); Alkaline Phosphatase 45 U/L (39-117); Anion Gap 11 (12-20); Aspartate Amino Transferase 20 U/L (5-31); Bacteria Urine 1+ (None Seen); Bilirubin Total 0.7 mg/dL (0.0-1.0); Blood Urea Nitrogen 8 mg/dL (9-16); Calcium 9.5 mg/dL (8.4-10.2); Carbon Dioxide 25 mmol/L (22-29); Chloride 110 mmol/L (96-108); Estimated Glomerular Filt Rate > 60; Glucose Random 95 mg/dL (60-115); Hyaline Casts Urine 0-2 /LPF (0-2); Potassium 4.1 mmol/L (3.3-5.1); RBC Urine 0-2 /HPF (0-2); Sodium 142 mmol/L (135-145); Total Protein 7.3 g/dL (6.5-8.0); UACC Culture Trigger YES
--- NOTE | 2025-03-28 11:00 | ED_ITS ---
HPI - Allergic Reaction General Chief complaint: Allergic Reaction Stated complaint: Allergic reaction? Time Seen by Provider: 03/28/25 11:00 Source: patient Mode of arrival: ambulatory Limitations: no limitations History of Present Illness ED Provider: Malachi Croft DO HPI narrative: 39-year-old female with past medical history of rheumatoid arthritis, chronic regional pain syndrome secondary to ganglion cyst surgery, who presents to the ED for a reaction including swelling of the feet and fingers as well as pain and difficulty closing the fingers in the setting of starting nitrofurantoin for asymptomatic bacteria within the past week. Patient states her last dose was last night. She developed the symptoms he today after she took her 1st dose. She has had no fevers, lip swelling, tongue swelling, below the breathing, abdominal pain, GI symptoms or urinary symptoms. She has never had these symptoms prior. She has seen Rheumatology in the past. Related Data Home Medications ?Medication ?Instructions ?Recorded ?Confirmed multivitamin 1 tab PO DAILY 09/03/20 03/24/25 zinc 50 mg tablet 50 mg PO DAILY 12/01/22 03/24/25 K complete K1 +MK4 + Mk7 1 cap PO 04/17/24 03/24/25 jordanian herbs, Ling and turmeric PO 03/24/25 Previous Rx's ?Medication ?Instructions ?Recorded ascorbic acid (vitamin C) 1,000 mg 1,000 mg PO DAILY #90 tabs 10/24/23 tablet,extended release (Vitamin C ER) nitrofurantoin 100 mg PO Q12H 7 days #14 caps 03/23/25 monohydrate/macrocrystals 100 mg capsule (Macrobid) cholecalciferol (vitamin D3) 25 25 mcg PO DAILY #90 caps 03/24/25 mcg (1,000 unit) capsule ferrous fumarate 324 mg (106 mg 324 mg PO DAILY #90 tabs 03/24/25 iron) tablet prednisone 20 mg tablet 60 mg (3 x 20 mg) PO DAILY 5 days 03/28/25 #15 tabs Allergies Allergy/AdvReac Type Severity Reaction Status Date / Time Penicillins [PCN] Allergy Intermediate HIVES Verified 03/28/25 10:06 Review of Systems 2 Review of Systems: Yes all other systems are reviewed and are negative PMFSH Past Medical History Medical History (Updated 03/28/25 @ 11:31 by Malachi Croft DO) Anxiety Arm pain, right Knee pain, right Pelvic pain in female Upper respiratory tract infection Locking of left knee Palpitations LLQ abdominal pain Changes in vision Vitamin D deficiency Mass of multiple sites of right breast Right shoulder injury Complex cyst of left ovary GERD (gastroesophageal reflux disease) H. pylori duodenitis Thyroid nodule Thalassemia carrier Ventral incisional hernia Complex regional pain syndrome Fibromyalgia Surgical History History of lumpectomy of right breast (12/11/22) History of removal of cyst History of umbilical hernia repair Family History Family History Mother Thyroid cancer Maternal Grandfather Lung cancer Paternal Grandfather Heart attack Social History Social History Housing: House Unable to assess alcohol history related to: Unknown Alcohol intake: never Patient Tobacco Use Status: Former Tobacco user Years Smoked: pt states quit 2009 e-Cigarette/Vaping Use: Never Used Second Hand Smoke Exposure: No service: No Current occupational status: disabled Current occupation: pt on disability Sexual orientation: Straight/Heterosexual Gender identity: Female Cognitive needs: No Hearing needs: No Vision needs: No Physical Exam ED Vital Signs: Vital Signs - 24 hr 03/28/25 10:01 Temperature 98.4 F Pulse Rate 102 H Respiratory Rate 18 Blood Pressure 141/58 H Pulse Oximetry 98 Oxygen Delivery Method Room Air BMI result Body Mass Index 42.3 Constitutional: Alert, oriented, speaking in full sentences HEENT: Normocephalic, atraumatic. Moist mucous membranes , no edema of the lips, tongue, palate or uvula Eyes: PERRL, EOMI Neck: Supple, nontender Chest: No chest wall tenderness Respiratory: Lungs clear to auscultation, no increased work of breathing Cardio: Regular rate and rhythm, no murmur, 2+ radial and DP pulses symmetrically GI: Soft, nondistended, nontender Back: Normal range of motion, nontender Skin: a couple areas of pinpoint rash located on the upper extremities, otherwise no lesions Neuro: Alert and oriented to person, place and time, moves all 4 extremities, no focal deficits Extremities: nonpitting edema of the bilateral lower extremities limited to the calves and feet, mild swelling of the fingers and hands my overlying skin changes. Patient is able to move all extremities fully although with some discomfort which closing her fists Psych: Calm, alert and cooperative, appropriate behavior Medical Decision Making Medical Decision Making [facility] Narrative: this is a well-appearing, pleasant 39-year-old female presenting or suspected reaction to nitrofurantoin. There are no signs of urticarial rash or anaphylaxis. Although the patient has some edema, I do not suspect nephrotic syndrome and her labs are unremarkable. She has no signs of myxedema coma. I suspect there may be a component of autoimmune reaction unmasked, possibly by her antibiotic regimen. Given the lack of urinary symptoms, we will discontinue the nitrofurantoin and given the possible autoimmune reaction, we will administer a course of steroids. Patient requests diphenhydramine which is also reasonable. She had no relief at home with Claritin. She is stable for discharge to home with instructions to take steroid regimen, follow up with PCP and Rheumatology and return with worsening symptoms. Patient is very content with this plan. Admission/Observation Consideration of admission/observation: Escalation of care including admission/observation considered Lab Data [facility] Lab Attestation statement: I reviewed the patient's lab results. 03/28/25 10:34 03/28/25 10:34 Labs: Lab Results 03/28/25 Range/Units 10:34 WBC 5.9 (4.8-10.8) X10*3/uL RBC 5.74 H (4.20-5.50) X10*6/uL Hgb 12.4 (12.0-16.0) g/dl Hct 38.5 (37.0-47.0) % MCV 67.1 L (80.0-98.0) fL MCH 21.6 L (27.0-33.0) pg MCHC 32.2 (31.0-35.0) g/dl RDW 16.0 (11.0-16.0) % Plt Count 300 (160-400) X10*3/uL MPV 10.4 (9.4-12.3) fL Immature Gran % (Auto) 0.5 H (0.0-0.4) % Neut % (Auto) 70.1 (45-73) % Lymph % (Auto) 16.6 L (20-40) % [place] % (Auto) 7.0 (2-11) % Eos % (Auto) 4.8 H (0-4) % Baso % (Auto) 1.0 (0-2) % Lymph # (Auto) 1.0 L (1.2-4.9) X10*3/uL [place] # (Auto) 0.4 (0.1-1.2) X10*3/uL Eos # (Auto) 0.3 (0.0-0.4) X10*3/uL Baso # (Auto) 0.1 (0.0-0.2) X10*3/uL Abs Immat Gran (auto) 0.03 (0.00-0.03) X10*3/uL Absolute Neuts (auto) 4.1 (2.0-8.3) x10*3/uL Absolute Nucleated RBC 0.000 (0.0-0.012) X10*3/uL Nucleated RBC % (auto) 0.0 (0.0-0.2) /100WBC Sodium 142 (135-145) mmol/L Potassium 4.1 (3.3-5.1) mmol/L Chloride 110 H (96-108) mmol/L Carbon Dioxide 25 (22-29) mmol/L Anion Gap 11 L (12-20) BUN 8 L (9-16) mg/dL Creatinine 0.71 (0.5-1.4) mg/dL Estim Creat Clear Calc 123.0 Estimated GFR > 60 Random Glucose 95 (60-115) mg/dL Calcium 9.5 (8.4-10.2) mg/dL Total Bilirubin 0.7 (0.0-1.0) mg/dL AST 20 (5-31) U/L ALT 28 (0-31) U/L Alkaline Phosphatase 45 (39-117) U/L Total Protein 7.3 (6.5-8.0) g/dL Albumin 4.0 (3.5-5.0) g/dL Urine Color Yellow Urine Appearance Cloudy Urine pH 6.0 (5.0-9.0) Ur Specific [place] 1.020 (1.005-1.025) Urine Protein Trace (Neg-Trace) mg/dL Urine Glucose (UA) Negative (Negative) mg/dL Urine Ketones Trace (Negative) mg/dL Urine Blood Negative (Negative) Urine Nitrite Negative (Negative) Ur Leukocyte Esterase Trace H (Negative) Urine RBC 0-2 (0-2) /HPF Urine WBC 6-10 H (0-5) /HPF Ur Squamous Epith Cells 11-20 (0-2) /HPF Urine Bacteria 1+ (None Seen) Hyaline Casts 0-2 (0-2) /LPF Independent Interpretation I performed an independent interpretation of an: EKG Interpretation: Normal sinus rhythm at 71 beats per minute, sinus arrhythmia, evidence of possible biatrial enlargement, no diagnostic ST or T-wave abnormalities, unremarkable intervals, no prior for comparison. Discharge Plan Discharge Clinical Impression: Bilateral hand swelling Medication adverse effect Qualifiers: Encounter type: initial encounter Qualified Code(s): T50.905A - Adverse effect of unspecified drugs, medicaments and biological substances, initial encounter Patient Disposition: Home, Self-Care Additional Instructions: It appears that you may have had a reaction to the nitrofurantoin. As discussed, discontinue this medication completely. There are no signs of urinary tract infection or other abnormalities have your blood work that are concerning today. Your exam is reassuring and although you have symptoms, this may be related to an autoimmune reaction. Therefore, we gave you a dose of steroid called prednisone and prescribed a 5 day course. Please take the full course as this is most likely to help your symptoms. You can also take diphenhydramine if this helps as well. Please return if you have any worsening or concerning symptoms whatsoever and otherwise follow up with your primary care provider and a oxygen therapy technician for re- evaluation and further workup. Prescriptions: New prednisone 20 mg tablet 60 mg PO DAILY 5 Days Qty: 15 0RF No Action nitrofurantoin monohyd/m-cryst [Macrobid] 100 mg capsule 100 mg PO Q12H 7 Days Qty: 14 0RF Rx Instructions: must administer with a meal/food ferrous fumarate 324 mg (106 mg iron) tablet 324 mg PO DAILY Qty: 90 3RF cholecalciferol (vitamin D3) 25 mcg (1,000 unit) capsule 25 mcg PO DAILY Qty: 90 0RF zinc 50 mg Tablet 50 mg PO DAILY multivitamin Tablet 1 tab PO DAILY Vitamin C 1,000 mg tablet extended release 1,000 mg PO DAILY Qty: 90 1RF jordanian herbs, Ling and turmeric PO K complete K1 +MK4 + Mk7 1 cap PO Patient Comments: phytonadione, Menaquilone and Menaleltrenone Print Language: Maltese
[2025-03-28 11:12] VITALS: BP 149/106; PULSE 79; RESP 16; O2SAT 98
--- NOTE | 2025-03-28 11:18 | PC.NURSE ---
Patient states did labwork and urine prior to her PCP visit and PCP notified patient her urine had 2+ bacteria and she neede to start on abx therapy (macrobid). Macrobid started on Sunday and since then started with swelling to hands and feet with some itching. Respirations even and non-labored. No resp distress or facial swelling noted.
--- OUTSIDE RECORDS SUMMARY | 2025-03-28 11:25 | XMS_ITS | Referral Summary ---
Author Organization [facility] Address [address] [place] [address] Care Team Providers Care Gun Welder Name Role Phone Thomas Boles Primary Care Provider [phone] Allergies No known active allergies Medications No [...] of Treatment Not on file Insurance MEDICARE [facility] Care Teams Gun Welder Relationship Specialty Start Date End Date Thomas Boles [address] [place] [address] dr Candis Chirinos, [place] [address] PCP - General Internal Medicine 06/06/21
--- OUTSIDE RECORDS SUMMARY | 2025-03-28 11:25 | XMS_ITS | Encounter Summary ---
Author Organization [facility] Address [address] [place] [address] Phone Care Team Providers Care Alto Singer Name Role Phone Ximena Martin Primary Care Provider [phone] Po, Thomas Oneil MD Primary Care Provider [phone] Reason for Referral * Rehabilitation (Elective) - Closed Specialty Diagnoses / Procedures Referred By Deanna olmedo Referred To Contact Diagnoses Complex regional pain syndrome type 1, affecting unspecified site Zach Donahue MD Phone: tel: fax: [email or web address] [address] [place] [address] Phone: tel: fax: Referral ID Status Reason Start Date Expiration Date Visits Re quested Visits Authorized [id number] Closed 08/01/2018 08/01/2019 1 1 Encounter Details Date Type Department Care Team (Latest Contact Info) Description 08/01/2018 Transcribe Orders [facility] Physical Therapy [address] [place] [id number] Jaky [email or web address] [email or web address] Complex regional pain syndrome type 1, affecting unspecified site (Primary Dx) Social History Tobacco Use Types Packs/Day Years Used Date Smoking Tobacco: Never Assessed Comments Unknown Sex and Gender Information Value Date Recorded Sex Assigned at Not on file Legal Sex Female 7:31 PM EST Gender Identity Not on file Sexual Orientation Not on file documented as of this encounter Plan of Treatment Scheduled Referrals Name Type Priority Associated Diagnoses Orde r Schedule Ambulatory referral to [facility] Physical Medicine and Rehab Outpatient Referral Routine Complex regional pain syndrome type 1, affecting unspecified site Ordered: 08/01/2018 documented as of this encounter Visit Diagnoses Diagnosis Complex regional pain syndrome type 1, affecting unspecified site- Primary documented in this encounter Care Teams Alto Singer Relationship Specialty Start Date End Date Ximena Martin PA [address] [place] [address] PCP - General Unknown Provider Specialty 05/29/1811/18/24 Thomas Boles MD [address] [place] [address] PCP - General Internal Medicine 11/19/24 documented as of this encounter Additional Source Comments The information contained in this document represents components of the legal health record. It is not the complete legal health record.[facility]
--- OUTSIDE RECORDS SUMMARY | 2025-03-28 11:25 | XMS_ITS | Encounter Summary ---
Author Organization [facility] Address [address] [place] [address] Phone Care Team Providers Care Commuter Train Operator Name Role Phone Ximena Martin Primary Care Provider [phone] Thomas Boles MD Primary Care Provider [phone] Encounter Details Date Type Department Care Team (Late st Contact Info) Description 02/06/2019 Procedure Pass [facility] General Imaging [address] [place] [address] Social History Tobacco Use Types Packs/Day Years Used Date Smoking Tobacco: Never Assessed Comments Unknown Sex and Gender Information Value Date Recorded Sex Assigned at Not on file Legal Sex Female 7:31 PM EST Gender Identity Not on file Sexual Orientation Not on file documented as of this encounter Plan of Treatment Not on file documented as of this encounter Visit Diagnoses Not on filedocumented in this encounter Care Teams Commuter Train Operator Relationship Specialty Start Date End Date Ximena Martin PA [address] [place] [address] PCP - General Unknown Provider Specialty 05/29/1811/18/24 Thomas Boles MD [address] [place] [id number] PCP - General Internal Medicine 11/19/24 documented as of this encounter Additional Source Comments The information contained in this document represents components of the legal health record. It is not the complete legal health record.[facility]
--- OUTSIDE RECORDS SUMMARY | 2025-03-28 11:25 | XMS_ITS | Clinical Summary ---
Author Organization [facility] Address [address] [place] [address] Phone Care Team Providers Care Belt Sewer Name Role Phone Thomas Boles MD Primary Care Provider [phone] Allergies Active Allergy Reactions Criticality Noted Date Comments Penicillins Hives,Acute Generali zed Exanthematous Pustulosis 07/03/2018 Medications MULTIVITAMIN ORAL Take by mouth daily. Active Medication-Free TextIndications: Vitamin B 12 chewable gummie daily. Acti ve cholecalciferol, vitamin D3, (VITAMIN D3 ORAL)Indications :Chewable gummie Take by mouth daily. Active BIOTIN ORALIndications: chewable gummie Take by mouth daily. Active Active Problems Problem Noted Date Diagnosed Date Complex regional pain syndro me type 2 of left upper extremity 09/26/2018 Fibromyalgia 09/26/2018 Right-sided low back pain with right-sided sciat ica 09/26/2018 Social History Tobacco Use Types Packs/Day Years Used Date Smoking Tobacco: Former Cigarettes 0 11/12/2005 - 11/12/2009 Smokeless Tobacco: Never Education Answer Date Recorded Are you interested in more education? Not on jim e 03/08/2023 Are you concerned about learning? Not on file 03/08/2023 No 03/08/2023 No 03/08/2023 Digital Access Answer Date Recorded No 04/09/2023 No 04/09/2023 No 04/09/2023 Reliable internet access at home? Not on file 04/09/2023 Device with a working camera? Not on file Comments Unknown Sex and Gender Information Value Date Recorded Sex Assigned at Not on file Legal Sex Female 7:31 PM EST Gender Identity Not on file Sexual Orientation Not on file Last Filed Vital Signs Vital Sign Reading Time Taken Comments Blood Pressure 108/80 02/20/2019 9:51 AM EDT Pulse 84 09/03/2018 1:10 PM EDT Temperature 36.7 ??C (98.1 ??F) 09/03/2018 1:10 PM ED T Respiratory Rate 16 09/03/2018 1:10 PM EDT Oxygen Saturation 98% 02/20/2019 9:51 AM EDT Inhaled Oxygen Concentration - - Weight - - Height - - Body Mass Index - - Plan of Treatment Health Maintenance Due Date Last Done Comments DEPRESSION SCREENING 1995 SMOKING Hx and SMOKELESS TOB ACCO SCREENING 1996 HEPATITIS B SCREENING 2001 HEPATITIS C SCREENING 2001 HIV ONE-TIME SCREENING (18-6 5 YEARS) 2001 HEPATITIS B VACCINES (1 of 3 - 19+ 3-dose series) 2002 PAP SMEAR 2004 Adult Td,Tdap Booster 05/03/2022 05/03/2012 MAMMOGRAM 2023 INFLUENZA VACCINE (#1) 2024 07/18/2012 COVID-19 VACCINE (1 - 2023-2 5 season) 2024 HEPATITIS A VACCINES Aged Out No long er eligible based on patient's age to complete this topic HIB VACCINES Aged Out No longer eligi ble based on patient's age to complete this topic MENINGOCOCCAL VACCINES (ACWY) Aged Out No longer eligible based on patient's age to complete this topic PNEUMOCOCCAL VACCINES (0-49 years) Aged Out No longer eligible based on patient's age to complete this topic Medical Devices Not on file Insurance [facility] & B [facility] & [facility] B [facility] MEDICARE PART A & B [place] MEDICARE PART A & [facility] PART A & B Care Teams Belt Sewer Relationship Specialty Start Date End Date Thomas Boles MD [address] [place] [id number] PCP - General Internal Medicine 11/19/24 Additional Source Comments The information contained in this document represents components of the legal health record. It is not the complete legal health record.[facility]
[2025-03-28] MEDS: predniSONE 20 MG TABLET 60 MG PO (11:43)
[2025-03-28] MEDS: diphenhydrAMINE HCL 25 MG CAPSULE PO (11:43)
[2025-03-28 11:48] VITALS: BP 149/106; PULSE 79; RESP 16; TEMP 36.7; O2SAT 98
== END 2025-03-28 11:52 | disposition home or self-care (01) ==
PROVIDERS: Emergency Provider Emergency Medicine; PCP Internal Medicine
DX: T50.905A Adverse effect of unspecified drugs, medicaments and biological substances, initial encounter (principal); M79.89 Other specified soft tissue disorders; X58.XXXA Exposure to other specified factors, initial encounter; Y92.9 Unspecified place or not applicable; Y93.9 Activity, unspecified; Y99.9 Unspecified external cause status
CPT/HCPCS: 36415; 80053; 81001; 85025; 87086; 93005; 99283; 99285

== ENCOUNTER → 2025-03-28 10:21 | Outpatient (BNV) | payer MEDICARE, MEDICAID, SELFPAY | PROVIDERS: Emergency Provider Emergency Medicine; PCP Internal Medicine; Visit Provider Internal Medicine Cardiovascular Disease | DX: R94.31 Abnormal electrocardiogram [ECG] [EKG] (principal); L71.9 Rosacea, unspecified | CPT/HCPCS: 93010 ==

== ENCOUNTER → 2025-04-08 10:56 | Outpatient (BNVA) | payer MEDICARE, MEDICAID, SELFPAY | PROVIDERS: PCP Internal Medicine; Visit Provider Physician Assistant Surgical | DX: Z13.89 Encounter for screening for other disorder (principal) ==

== ENCOUNTER 2025-05-11 08:20 | Outpatient (AMB) | payer MEDICARE, MEDICAID, SELFPAY ==
--- NOTE | 2025-05-11 08:14 | A.OFFVIS_ITS ---
VS Expanded 05/11/25 08:53 Height 5 ft 3 in Weight 238 lb 4 oz BMI 42.2 Body Fat % 45.4 Body Fat Mass 108.2 Fat Free Mass 130 Visceral Fat Rating 13 Body Water % 39 Body Water Mass 93 Basal Metabolic Rate/Score 1,837 Intake Visit Reasons: TV PEDIATRIC RADIOLOGIST [facility] Allergies Penicillins (PCN) Allergy (Intermediate, Verified 05/11/25 08:14) HIVES Medication List - Last Reconciled 05/11/25 by Jeff Jackson MD [samoan herbs, Ling and turmeric PO] cholecalciferol (vitamin D3) 25 mcg PO DAILY ferrous fumarate 324 mg PO DAILY [K complete K1 +MK4 + Mk7 1 cap PO] multivitamin 1 tab PO DAILY HPI HPI TV PEDIATRIC RADIOLOGIST [facility]: Details: Start time: 8.10am, End time: 9.03am ?I spent 48 minutes speaking with the patient on the phone plus an additional 5 minutes reviewing and updating records for a total of 53 minutes HPI Comments Details: Previous weight loss efforts: Intermittent fasting and self exercise Wakes up: 6am, Sleeps: 10pm Breakfast: 10am Celebrate 4:1 protein shake Lunch: 2pm Elevation [employer] protein shake Dinner: 5pm Snacks: elevation protein bar occasionally Exercise: has home treadmill Beverages: Small Thai coffee (with sugar), tea: none, soda: none, juice: none, ETOH: none PFSH Medical History (Updated 05/11/25 @ 08:21 by Jeff Jackson MD) Arm pain, right Knee pain, right Pelvic pain in female Upper respiratory tract infection Locking of left knee Palpitations LLQ abdominal pain Changes in vision Vitamin D deficiency Mass of multiple sites of right breast Right shoulder injury Complex cyst of left ovary GERD (gastroesophageal reflux disease) H. pylori duodenitis Thyroid nodule Thalassemia carrier Ventral incisional hernia Complex regional pain syndrome Fibromyalgia Surgical History History of lumpectomy of right breast (12/11/22) History of removal of cyst History of umbilical hernia repair Family History Mother Thyroid cancer Maternal Grandfather Lung cancer Paternal Grandfather Heart attack Social History Housing: House Unable to assess alcohol history related to: Unknown Alcohol intake: never Patient Tobacco Use Status: Former Tobacco user Years Smoked: pt states quit 2009 e-Cigarette/Vaping Use: Never Used Second Hand Smoke Exposure: No service: No Current occupational status: disabled Current occupation: pt on disability Sexual orientation: Straight/Heterosexual Gender identity: Female Cognitive needs: No Hearing needs: No Vision needs: No Female Reproductive History Menstrual Age of Menarche: 10 Telehealth Telehealth Telehealth Platform: Telephone Location of provider rendering services: practice address Location of patient: address on file Patient Identification confirmed using: Name, : Yes Telehealth method: voice only Patient verbally consented to treatment: Yes Patient verbally consented to billing insurance company: Yes Patient informed of any privacy concerns related to visit: Yes Minutes spent on Phone/Video with Pt.: 53 Assessment & Plan Assessment & Plan (1) Morbid obesity: Code(s): E66.01 - Morbid (severe) obesity due to excess calories Category: Medical Plan: 1. We discussed in detail the available therapeutic options: 1) our lifestyle intervention program that has an average weight loss of 10% in 3 months.? 2) Weight loss medications. We also discussed that you can self pay for the first 3 months and the cost is $349 for the first month and $499 for any other month thereafter. We also discussed the use of Phentermine. 3) We also discussed about the lap sleeve gastrectomy. I emphasized the importance of close follow-up, adherence to instructions and good communication. The surgery does not replace the need to change your lifestlyle which is the cause of the obesity problem. The surgery provides the motivation to try again to change your lifestyle, it reduces the appetite and make the transition to a better lifestyle easier and doubles the amount of weight you would lose compared to doing the lifestyle change without the surgery. You will need to be on a liquid diet with protein shakes for 2 weeks before surgery to maximize weight loss and boost your nutritional status to recover better from surgery and also for the first two weeks after surgery to let the stomach heal before we introduce other foods. After the first 2 weeks we will introduce protein bars and soft foods like scrambled eggs, cottage cheese and yogurt and after the 6th week will introduce meat, fish and cooked vegetables in small amounts. Over time you should be able to eat everything in small amounts. Side effects like nausea, vomiting, heartburn or abdominal pain are not common in the practice unless you are not following in the practice. This operation requires lifetime commitment to following in our practice and communication with me. You will much less weight and experience side effects if you don?t communicate or not following in the practice. Complications are rare and in our practice is about 1/10 of the national average. The patient prefers to try the Phentermine. ?2.? Please use your body composition scale we discussed and send me weight measurements as soon as possible and then once a week. 3. The best choice would be to purchase a stationary bike at home that can track calories. Let me know if you do so I can give you an exercise plan. Goal is to exercise for 150 minutes per week. 4. Goal is to lose at least 1.5-2lbs per week 5. Goal to lose at least 10% of your weight, which is about 24lbs. Weight goal: 214lbs 6. We discussed the potential side-effects of the Phentermine such as irritability, dry mouth, difficulty sleeping, dizziness, numbness in feet and high blood pressure. I asked her to get a blood pressure monitor and measure the blood pressure daily in the morning and evening. She needs to send the blood pressure readings daily and to call the office for blood pressure over 140/80 and she understands that. Medications: New phentermine must administer 30 minutes before or 1-2 hours after breakfast 37.5 mg PO DAILY 30 caps 0RF E66.01 - Morbid (severe) obesity due to excess calories
--- OUTSIDE RECORDS SUMMARY | 2025-05-11 08:24 | XMS_ITS | Patient Health Record ---
Author Organization [facility] Address [address] [place] [address] Care Team Providers Care Area Mechanic Name Role Phone Roxana PEDROZA MD, Dorian Primary Care Provider Un available Allergies Allergen (clinical drug ingredient) Drug/Non Drug Allergy documented on EMR Reaction Allergy Type Onset Date Status oxycodone Oxycodone (uncoded) HIVES Allergy Active PENICILLIN (uncoded) HIVES Allergy Active Reason For Referral No Information Medications Medication SIG (Take, Route, Frequency, Duration) Notes Start Date End Date Status Methocarbamol 500 MG 1 tablet Orally hieu ry 8 hrs; Duration: 30 days 07/03/2016 Not-Takin g Meloxicam 7.5 MG 1 tablet Orally Once a day; Duration: 30 day(s) 07/03/2016 Not-Taking Social History Tobacco Use: Social History Observation Description Date Details (start date - stop date) Former Smoker NA - NA Tobacco Use/Smoking Question Answer Notes Are you a former smoker How long has it been since you last smoked? 6-12 months Plan Of Treatment No Information Insurance Providers Payer Name Payer Address Payer Phone Subscriber Number Group Number Insured Name Patient Relationship to Insured Coverage Start Date Coverage End Date [facility] [address] [address] [place] [address] [id number] OCTAVIANO SHAHID Self - patient is the insured [employer] of [place] [address] [place] [address] [id number] OCTAVIANO SHAHID Self - patient is the insured Medical (General) History Medical History History ICD Code chronic hand pain GERD bronchitis joint pain hernia arthritis Surgical History Surgery Date(Month/Year) hernia repair
[2025-05-11 08:53] VITALS: BMI 42.2
== END 2025-05-11 09:04 | disposition home or self-care (01) ==
LOC: HO.HBS 08:20
PROVIDERS: PCP Internal Medicine; Visit Provider Surgery
DX: E66.01 Morbid (severe) obesity due to excess calories (principal)
CPT/HCPCS: 99204

== ENCOUNTER → 2025-05-11 08:20 | Outpatient (BNVA) | payer MEDICARE, MEDICAID, SELFPAY | PROVIDERS: PCP Internal Medicine; Visit Provider Surgery | DX: Z13.89 Encounter for screening for other disorder (principal) ==

== ENCOUNTER 2025-06-02 12:09 | Emergency (ER) | payer MEDICARE, SELFPAY ==
--- NOTE | ~2025-06-02 | CT_ITS ---
CLINICAL HISTORY: rectal bleeding pain, OBS positive CT abdomen and pelvis with and without contrast Comparison: CT - CT GI BLEED ABD PEL WO/W IVCON - 06/02/25 16:40 EDT Findings: No consolidation or effusion. The gallbladder and solid organs are within normal limits. No renal stones. No bowel obstruction, pneumoperitoneum, or pneumatosis. No evidence of contrast extravasation into the bowel lumen to indicate active hemorrhage. Small amount of free pelvic fluid is present. Normal appendix. The bones are intact. IMPRESSION: No acute findings. This document has been electronically signed by: Floyd Clark MD on 06/02/2025 18:38:58
--- NOTE | ~2025-06-02 | XR_ITS ---
EXAMINATION: XR ABDOMEN KUB CLINICAL INDICATION: rectal pain ?constipation COMPARISON: None available. TECHNIQUE: AP view of the abdomen. FINDINGS: The bowel gas pattern is normal with no evidence of ileus or obstruction. No unusual soft tissue calcifications are noted. Marginal osteophyte are present along the cephalad aspect of the pubic symphysis joint. XR/XR KUB IMPRESSION: There is a normal bowel gas pattern. Electronically signed by: Dorian Mays MD 06/02/2025 03:41 PM EDT
[2025-06-02 12:34] VITALS: BP 142/92; PULSE 90; RESP 16; TEMP 36.8; O2SAT 100; BMI 40.3
--- NOTE | 2025-06-02 12:41 | ED.GENADULT ---
HPI - General Adult General Chief complaint: General Medical Stated complaint: pain anal Time Seen by Provider: 06/02/25 14:08 Source: patient Mode of arrival: ambulatory Limitations: no limitations History of Present Illness ED Provider: MEGAN MARCELO PA-C HPI narrative: 40 year old female with pmhx significant for diverticulitis, complex regional pain syndrome, fibromyalgia presents to the ED today for evaluation of intermittent rectal pain x weeks. Pain has been worsening over the last few days, becoming more constant today prompting her to come to the ED for evaluation. Pain is currently 12/10. She describes this as a sharp, burning sensation to her rectum. Admits to noticing pink color on the toilet paper after BM a few weeks ago. No arlin blood per rectum. Reports recent dietary changes made by her bariatric physician approx 1 month ago. Admits BMs have been more infrequent since these changes were made. Denies hematochezia, melena, abdominal pain, N/V. Triage note stated patient reporting dizziness -- on further questioning, patient states pain was so severe today it made her feel faint for a brief moment. denies any dizziness. Related Data Home Medications ?Medication ?Instructions ?Recorded ?Confirmed multivitamin 1 tab PO DAILY 09/03/20 05/11/25 K complete K1 +MK4 + Mk7 1 cap PO 04/17/24 05/11/25 citizen of [place] herbs, Ling and turmeric PO 03/24/25 05/11/25 Previous Rx's ?Medication ?Instructions ?Recorded cholecalciferol (vitamin D3) 25 25 mcg PO DAILY #90 caps 03/24/25 mcg (1,000 unit) capsule ferrous fumarate 324 mg (106 mg 324 mg PO DAILY #90 tabs 03/24/25 iron) tablet docusate sodium 100 mg capsule 100 mg PO DAILY PRN constipation 06/02/25 (Colace) #20 caps hydrocortisone acetate 25 mg 25 mg MN BID PRN rectal pain #12 ea 06/02/25 rectal suppository (Anusol-HC) polyethylene glycol 3350 17 17 g PO DAILY 4 days #68 grams 06/02/25 gram/dose oral powder (Miralax) phentermine 37.5 mg capsule 37.5 mg PO DAILY #30 caps 06/06/25 Allergies Allergy/AdvReac Type Severity Reaction Status Date / Time Penicillins (PCN) Allergy Intermediate HIVES Verified 06/02/25 12:40 Review of Systems Review of Systems: Yes all other systems are reviewed and are negative [facility] Past Medical History Attestation statement: The following information was validated with the patient. Source: old records reviewed and nursing notes reviewed Medical History Arm pain, right Knee pain, right Pelvic pain in female Upper respiratory tract infection Locking of left knee Palpitations LLQ abdominal pain Changes in vision Vitamin D deficiency Mass of multiple sites of right breast Right shoulder injury Complex cyst of left ovary GERD (gastroesophageal reflux disease) H. pylori duodenitis Thyroid nodule Thalassemia carrier Ventral incisional hernia Complex regional pain syndrome Fibromyalgia Surgical History History of lumpectomy of right breast (12/11/22) History of removal of cyst History of umbilical hernia repair Family History Family History Mother Thyroid cancer Maternal Grandfather Lung cancer Paternal Grandfather Heart attack Social History Social History Housing: House Unable to assess alcohol history related to: Unknown Alcohol intake: never Patient Tobacco Use Status: Former Tobacco user Years Smoked: pt states quit 2010 Smoked in Last 30 Days: No e-Cigarette/Vaping Use: Never Used Second Hand Smoke Exposure: No Use of substances other than those prescribed or required for medical reasons: No Advance Directives: No Advance Directives Information Provided: No Do you have a plan to hurt others: No Plan Patient : No service: No Current occupational status: disabled Current occupation: pt on disability Sexual orientation: Straight/Heterosexual Gender identity: Female Cognitive needs: No Hearing needs: No Vision needs: No Physical Exam ED Vital Signs: Vital Signs - 24 hr 06/02/25 12:34 06/02/25 15:58 06/02/25 18:03 Temperature 98.2 F 98.3 F Pulse Rate 90 61 61 Respiratory Rate 16 18 18 Blood Pressure 142/92 H 112/69 125/80 Pulse Oximetry 100 98 100 Oxygen Delivery Method Room Air Room Air Room Air 06/02/25 19:27 06/02/25 19:46 Temperature 98 F 98 F Pulse Rate 60 60 Respiratory Rate 16 16 Blood Pressure 120/84 120/84 Pulse Oximetry 98 98 Oxygen Delivery Method Room Air Room Air BMI result Body Mass Index 40.3 Vital signs stable General: Well appearing, in no acute distress. Skin: Warm, dry, intact. No rashes or lesions. Head: Normocephalic, atraumatic. EENT: Hearing is intact b/l. Conjunctiva clear. PERRLA. EOM intact. Moist mucous membranes.? Cardiac: Chest wall symmetric. RRR Lungs: Normal respiratory effort without accessory muscle use. CTA bilaterally Abdomen: Soft, non-tender, non-distended. No rebound tenderness or guarding. Positive BS x4. Rectal exam performed with Conor LEES student in room, patient declines any other transmission design engineer. Normal rectal sphincter tone. No external masses or lesions. Palpable stool in rectal vault. Stool is normal in appearance. OBS positive. Ext: Upper and lower extremities atraumatic, without tenderness, deformity, swelling or erythema Neuro: AOx3. Normal speech. Ambulating with steady gait. Course Course Course Narrative: RME: 40 yold female presents to the ED for anal pain for one weeks that comes at random. Patient denies any rectal bleeding, mass, discharge, or anal trauma. patient to [facility] in [facility]. Reevaluation(s) Reevaluation #1: CBC without leukocytosis or left shift. H&H stable, no anemia. Chemistry without acute electrolyte abnormality requiring intervention. No LEONOR. Liver function WNL. OBS positive. CT abdomen/pelvis unremarkable. No evidence of active bleed. > no concern for GI bleed. Patient likely has internal hemorrhoids. Will prescribe suppository. I also suspicion she is constipated due to her recent dietary changes. Will prescribe Colace and MiraLax to use as needed. she has a follow up appointment with her PCP in a few days. advised to keep this appointment. Patient has remained stable throughout ED visit today. Discussed worrisome signs and symptoms and when to return to the ED. All questions answered at this time. Patient is agreeable with disposition and stable for discharge. Medications Administered Discontinued Medications Generic Name Dose Route Start Last Admin Trade Name Freq PRN Reason Stop Dose Admin Docusate Sodium 100 mg 06/02/25 19:32 06/02/25 19:37 Docusate Sodium 100 Mg Capsule PO 06/02/25 19:33 100 mg ONCE ONE Administration Iohexol 100 ml 06/02/25 17:18 06/02/25 17:19 Iohexol 350 Mg/Ml 100 Ml Infus..Btl IV 06/02/25 17:19 85 ml ONCE ONE Administration Polyethylene Glycol 17 gm 06/02/25 19:32 06/02/25 19:37 Polyethylene Glycol 3350 17 Gm Powd.Pack PO 06/02/25 19:33 17 gm ONCE ONE Administration Medical Decision Making Medical Decision Making [facility] Narrative: 40 year old female with pmhx significant for diverticulitis, complex regional pain syndrome, fibromyalgia presents to the ED today for evaluation of intermittent rectal pain x weeks. patient is mildly hypertensive, vitals are otherwise wnl. she is anxious appaering. on exam, abdomenb is soft, non-tender, non-distended. No rebound tenderness or guarding. Positive BS x4. Rectal exam performed with Conor LEES student in room, patient declines any other transmission design engineer. Normal rectal sphincter tone. No external masses or lesions. Palpable stool in rectal vault. Stool is normal in appearance. OBS positive. Differential diagnosis includes internal vs external hemorrhoid, fissure, rectal polyp, diverticulitis/diverticulosis, inflammatory bowel disease, IBS, fibromyalgia, rectal prolapse, colitis. Less likely rectal abscess, malignancy, fistula. Plan for screening labs, OBS, +/- imaging. Differential Diagnosis Differential Diagnoses: The differential diagnosis associated with the presentation includes as above Admission/Observation not indicated. Lab Data [facility] Lab Attestation statement: I reviewed the patient's lab results. as above. 06/02/25 16:11 06/02/25 16:11 Labs: Lab Results 06/02/25 06/02/25 Range/Units 15:21 16:11 WBC 6.9 (4.8-10.8) X10*3/uL RBC 5.63 H (4.20-5.50) X10*6/uL Hgb 12.5 (12.0-16.0) g/dl Hct 37.9 (37.0-47.0) % MCV 67.3 L (80.0-98.0) fL MCH 22.2 L (27.0-33.0) pg MCHC 33.0 (31.0-35.0) g/dl RDW 15.8 (11.0-16.0) % Plt Count 247 (160-400) X10*3/uL MPV Not Reportable Immature Gran % (Auto) 0.3 (0.0-0.4) % Neut % (Auto) 73.5 H (45-73) % Lymph % (Auto) 16.3 L (20-40) % Mitchell % (Auto) 7.8 (2-11) % Eos % (Auto) 1.7 (0-4) % Baso % (Auto) 0.4 (0-2) % Lymph # (Auto) 1.1 L (1.2-4.9) X10*3/uL Mitchell # (Auto) 0.5 (0.1-1.2) X10*3/uL Eos # (Auto) 0.1 (0.0-0.4) X10*3/uL Baso # (Auto) 0.0 (0.0-0.2) X10*3/uL Abs Immat Gran (auto) 0.02 (0.00-0.03) X10*3/uL Absolute Neuts (auto) 5.1 (2.0-8.3) x10*3/uL Absolute Nucleated RBC 0.000 (0.0-0.012) X10*3/uL Nucleated RBC % (auto) 0.0 (0.0-0.2) /100WBC Sodium 141 (135-145) mmol/L Potassium 4.0 (3.3-5.1) mmol/L Chloride 108 (96-108) mmol/L Carbon Dioxide 22 (22-29) mmol/L Anion Gap 15 (12-20) BUN 14 (9-16) mg/dL Creatinine 0.84 (0.5-1.4) mg/dL Estim Creat Clear Calc 100.1 Estimated GFR > 60 Random Glucose 77 (60-115) mg/dL Calcium 9.3 (8.4-10.2) mg/dL Total Bilirubin 0.7 (0.0-1.0) mg/dL AST 31 (5-31) U/L ALT 30 (0-31) U/L Alkaline Phosphatase 37 L (39-117) U/L Total Protein 7.3 (6.5-8.0) g/dL Albumin 4.5 (3.5-5.0) g/dL Beta HCG, Quant < 2 mIU/mL Stool Occult Blood POSITIVE (NEGATIVE) Independent Interpretation I performed an independent interpretation of an: CT Scan Interpretation: CT A/P without active bleed Radiology Impression Discussion of test interpretation with radiology: I have reviewed the radiologist's reading. Radiologist Impression: Procedure(s): CT gi bleed abd pel wo/w IVcon Accession Number(s): [id number] cc: Po,Thomas Nieto MD; Megan Marcelo~ Report Number: [id number]: Total DLP = 2235.00 mGy-cm CLINICAL HISTORY: rectal bleeding pain, OBS positive CT abdomen and pelvis with and without contrast Comparison: CT - CT GI BLEED ABD PEL WO/W IVCON - 06/02/25 16:40 EDT Findings: No consolidation or effusion. The gallbladder and solid organs are within normal limits. No renal stones. No bowel obstruction, pneumoperitoneum, or pneumatosis. No evidence of contrast extravasation into the bowel lumen to indicate active hemorrhage. Small amount of free pelvic fluid is present. Normal appendix. The bones are intact. IMPRESSION: No acute findings. This document has been electronically signed by: Floyd Clark MD on 06/02/2025 18:38:58 External Record Review External record reviewed: Inpatient record Social Determinants Patient?s care significantly limited by Social Determinants of Health including: Other Social Determinant of Health Critical Care Time Critical Care Time Critical Care Time: No Discharge Plan Discharge Clinical Impression: Rectal pain Patient Disposition: Home, Self-Care Instructions: Sitz Bath (DC), Rectal Pain (ED) Additional Instructions: Your workup today is reassuring. You were constipated. I have sent Colace (a stool softener) and MiraLax (a laxative) to your pharmacy for you to take as needed for constipation. I have also sent a suppository for you to use twice a day as needed for rectal pain. Please keep your appointment with your primary care provider on . Return with any new or worsening symptoms. In the case of an emergency call 911. Prescriptions: New hydrocortisone acetate [Anusol-HC] 25 mg suppository 25 mg MN BID PRN (Reason: rectal pain) Qty: 12 0RF docusate sodium [Colace] 100 mg capsule 100 mg PO DAILY PRN (Reason: constipation) Qty: 20 0RF polyethylene glycol 3350 [Miralax] 17 gram/dose powder 17 g PO DAILY 4 Days Qty: 68 0RF No Action ferrous fumarate 324 mg (106 mg iron) tablet 324 mg PO DAILY Qty: 90 3RF cholecalciferol (vitamin D3) 25 mcg (1,000 unit) capsule 25 mcg PO DAILY Qty: 90 0RF phentermine 37.5 mg capsule 37.5 mg PO DAILY Qty: 30 0RF Rx Instructions: must administer 30 minutes before or 1-2 hours after breakfast multivitamin Tablet 1 tab PO DAILY [place] herbs, Ling and turmeric PO K complete K1 +MK4 + Mk7 1 cap PO Patient Comments: phytonadione, Menaquilone and Menaleltrenone Referrals: Thomas Boles MD [Primary Care Provider, Internal Medicine] Interventions: ED Discharge Assessment Last Done: 06/02/25 19:46 Discharge Date/Time: 06/02/25 19:47 Print Language: Hong Konger
[2025-06-02 15:28] LABS: OBS Int Ctl Valid YES; OBS1 POSITIVE (NEGATIVE)
[2025-06-02 15:58] VITALS: BP 112/69; PULSE 61; RESP 18; TEMP 36.8; O2SAT 98
[2025-06-02 16:16] LABS: MANUAL DIFF FLAG NO
--- OUTSIDE RECORDS SUMMARY | 2025-06-02 16:16 | XMS_ITS | Clinical Summary ---
[facility] Address [address] [place] [address] Care Team Providers Care Inspector Wire Products Name Role Phone Thomas Boles Primary Care Provider [phone] Allergies No known active allergies Medications No [...] 68 06/13/2021 3:28 PM EDT Temperature 36.8 C (98.3 F) 06/13/2021 3:28 PM EDT Respiratory Rate - - Oxygen Saturation - [...] or Tdap) 04/13/2025 04/13/2015, 05/03/2012 Influenza Vaccine (#1) 2025 07/18/2012 RSV Vaccine (60+ years old and patients) (1 - 1-dose 75+ series) 2058 Pneumococcal Vaccine: Pediatric (0-5 Years) and At-Risk Patients (6-50 Years) Aged Out No longer eligible based on patient's age to complete this topic Insurance MEDICARE [facility] Care Teams Inspector Wire Products Relationship Specialty Start Date End Date Thomas Boles [address] [place] [address] [place] [address] PCP - General Internal Medicine 06/06/21
--- OUTSIDE RECORDS SUMMARY | 2025-06-02 16:16 | XMS_ITS | Encounter Summary ---
Author Organization [facility] Address [address] [place] [address] Phone Care Team Providers Care Playground Equipment Erector Name Role Phone Ximena Martin Primary Care Provider [phone] Thomas Boles MD Primary Care Provider Encounter Details Date Type Department Care Team (Late st Contact Info) Description 02/06/2019 Procedure Pass [facility] General Imaging [address] [place] [address] Social History Tobacco Use Types Packs/Day Years [...] on filedocumented in this encounter Care Teams Playground Equipment Erector Relationship Specialty Start Date End Date Ximena Martin PA [address] [place] [address] PCP - General Unknown Provider Specialty 05/29/1811/18/24 Thomas Boles MD [address] [place] [id number] PCP - General Internal Medicine 11/19/24 documented as of this encounter Additional Source Comments The information contained in this document represents components of the legal health record. It is not the complete legal health record.[facility]
--- OUTSIDE RECORDS SUMMARY | 2025-06-02 16:17 | XMS_ITS | Patient Health Record ---
Author Organization [facility] Address [address] [place] [address] Care Team Providers Care Business Dean Name Role Phone Roxana PEDROZA MD, Dorian [...] Insured Coverage Start Date Coverage End Date [facility] [address] [address] [place] [address] [id number] OCTAVIANO SHAHID Self - patient is the insured [employer] of [place] [address] [place] [address] [id number] OCTAVIANO SHAHID Self - patient is the insured Medical (General) History Medical History History ICD Code chronic hand pain GERD bronchitis joint pain hernia arthritis Surgical History Surgery Date(Month/Year) hernia repair
[2025-06-02 16:23] LABS: Hematocrit 37.9 % (37.0-47.0); Hemoglobin 12.5 g/dl (12.0-16.0); Imm Gran Abs Auto 0.02 X10*3/uL (0.00-0.03); Imm Gran Pct Auto 0.3 % (0.0-0.4); Lymphocytes Absolute Auto 1.1 X10*3/uL (1.2-4.9); Mean Corpuscular HGB Conc 33.0 g/dl (31.0-35.0); Mean Corpuscular Hemoglobin 22.2 pg (27.0-33.0); Mean Corpuscular Volume 67.3 fL (80.0-98.0); NRBC Abs Auto 0.000 X10*3/uL (0.0-0.012); NRBC Pct Auto 0.0 /100WBC (0.0-0.2); Platelet Count 247 X10*3/uL (160-400); Red Blood Count 5.63 X10*6/uL (4.20-5.50); White Blood Count 6.9 X10*3/uL (4.8-10.8)
[2025-06-02 16:39] LABS: Alanine Aminotransferase 30 U/L (0-31); Albumin Level 4.5 g/dL (3.5-5.0); Alkaline Phosphatase 37 U/L (39-117); Anion Gap 15 (12-20); Aspartate Amino Transferase 31 U/L (5-31); Blood Urea Nitrogen 14 mg/dL (9-16); Calcium 9.3 mg/dL (8.4-10.2); Carbon Dioxide 22 mmol/L (22-29); Chloride 108 mmol/L (96-108); Creatinine Clr Calc Pharmacy 100.1; Estimated Glomerular Filt Rate > 60; Potassium 4.0 mmol/L (3.3-5.1); Sodium 141 mmol/L (135-145); Total Protein 7.3 g/dL (6.5-8.0)
[2025-06-02] MEDS: iohexoL 350 MG/ML 100 ML INFUS..BTL IV (17:19)
[2025-06-02 18:03] VITALS: BP 125/80; PULSE 61; RESP 18; O2SAT 100
[2025-06-02 19:27] VITALS: BP 120/84; PULSE 60; RESP 16; TEMP 36.6; O2SAT 98
[2025-06-02 19:46] VITALS: BP 120/84; PULSE 60; RESP 16; TEMP 36.6; O2SAT 98
== END 2025-06-02 19:47 | disposition home or self-care (01) ==
PROVIDERS: Physician Assistant Medical; Emergency Provider Emergency Medicine Emergency Medical Services; PCP Internal Medicine
DX: K62.89 Other specified diseases of anus and rectum (principal); K62.5 Hemorrhage of anus and rectum; E55.9 Vitamin D deficiency, unspecified; R10.2 Pelvic and perineal pain; Z79.899 Other long term (current) drug therapy
CPT/HCPCS: 36415; 74018; 74178; 80053; 82272; 84702; 85025; 99284; Q9967

== ENCOUNTER → 2025-06-02 15:15 | Outpatient (BNV) | payer MEDICARE, MEDICAID, SELFPAY | PROVIDERS: Emergency Provider Emergency Medicine Emergency Medical Services; PCP Internal Medicine; Visit Provider Radiology Diagnostic Radiology | DX: K62.5 Hemorrhage of anus and rectum (principal); K62.89 Other specified diseases of anus and rectum | CPT/HCPCS: 74018; 74178 ==

== ENCOUNTER 2025-07-03 07:52 | Outpatient (AMB) | payer MEDICARE, MEDICAID, SELFPAY ==
--- OUTSIDE RECORDS SUMMARY | 2025-07-03 07:54 | XMS_ITS | Patient Health Record ---
Author Organization [facility] Address [address] [place] [address] Care Team Providers Care Telegraph Office Manager Name Role Phone Roxana PEDROZA MD, Dorian [...] Insured Coverage Start Date Coverage End Date [facility] [address] [address] [place] [address] [id number] OCTAVIANO SHAHID Self - patient is the insured [employer] of [place] [address] [place] [address] [id number] OCTAVIANO SHAHID Self - patient is the insured Medical (General) History Medical History History ICD Code chronic hand pain GERD bronchitis joint pain hernia arthritis Surgical History Surgery Date(Month/Year) hernia repair
--- OUTSIDE RECORDS SUMMARY | 2025-07-03 07:54 | XMS_ITS | Clinical Summary ---
Author Organization [facility] Address [address] [place] [address] Care Team Providers Care History Department Chair Name Role Phone Thomas Boles Primary Care Provider [phone] Allergies No known active allergies Medications No [...] age to complete this topic Insurance MEDICARE [facility] Care Teams History Department Chair Relationship Specialty Start Date End Date Thomas Boles [address] [place] [address] [place] [address] PCP - General Internal Medicine 06/06/21
--- OUTSIDE RECORDS SUMMARY | 2025-07-03 07:54 | XMS_ITS | Encounter Summary ---
Author Organization [facility] Address [address] [facility] [address] [place] [address] Phone Care Team Providers Care [facility] Name Role Phone Ximena Martin Primary Care Provider [phone] Thomas Boles MD Primary Care Provider [phone] Encounter Details Date Type Department Care Team (Late st Contact Info) Description 02/06/2019 Procedure Pass [facility] General Imaging [address] [place] [address] Social History Tobacco Use Types Packs/Day Years [...] on filedocumented in this encounter Care Teams [facility] Relationship Specialty Start Date End Date Ximena Martin PA [address] [place] [address] PCP - General Unknown Provider Specialty 05/29/1811/18/24 Thomas Boles MD [address] [place] [phone] PCP - General Internal Medicine 11/19/24 documented as of this encounter Additional Source Comments The information contained in this document represents components of the legal health record. It is not the complete legal health record.[facility]
--- NOTE | 2025-07-03 07:56 | MHC.OFFWIV ---
Intake Vital Signs 07/03/25 07:57 Height 5 ft 3 in Weight 215 lb BMI 38.1 BP 124/72 Blood Pressure Location Rt brachial Position Sitting Respiration 16 Pulse 87 Pulse Source Pulse Oximeter Temp 98.1 F Temp Source Oral Pulse Oximetry (%) 98 Oxygen Delivery Method Room Air Intake Visit Reasons: EP-b/l legs ground wasps bites Intake Note: Pt is here today c/o wasp bite bilateral legs yesterday Patient Tobacco Use Status: Former Tobacco user Allergies Penicillins (PCN) Allergy (Intermediate, Verified 06/02/25 12:40) HIVES HPI HPI Comments History of Present Illness Details History of Present Illness - The patient is a 40-year-old female presenting with a redness and swelling of her legs following insect stings. - The patient experienced a similar episode last year after being stung by wasps while mowing the lawn, which led to cellulitis diagnosed at the ER. - The current episode began after being stung by wasps while mowing the lawn again, resulting in severe pain, burning, itching, and tightness of the skin. - The patient reports that the condition worsened quickly, similar to the previous episode. - The patient was advised previously to seek medical attention promptly if stung again and was prescribed doxycycline, which she is considering taking despite concerns about sun exposure. - She denies fever, chills, calf pain, SOB, wheezing, sore throat, numbness, or tingling. Physical Exam General: Cooperative, healthy appearing, comfortable, no acute distress and well developed Orientation: Patient oriented x3 Respiratory: Normal respiratory effort and able to speak in complete sentences. Clear to auscultation bilaterally Cardiovascular: Regular rate and rhythm. Normal S1 and S2 Skin: Multiple bug bites noted on the lower extremities. Erythema and warmth noted on the lower legs on the posterior right calf and anterior left leg. Mild edema noted. Neuro: Sensation is intact. Extremities: FROM of the lower legs bilaterally. Strength is 5/5 on the LE. Negative Homans noted bilaterally. Ambulates with steady gait. Patient was informed and verbally consented to the use of an ambient scribe for clinic note documentation during this visit. [facility] Medical History Arm pain, right Knee pain, right Pelvic pain in female Upper respiratory tract infection Locking of left knee Palpitations LLQ abdominal pain Changes in vision Vitamin D deficiency Mass of multiple sites of right breast Right shoulder injury Complex cyst of left ovary GERD (gastroesophageal reflux disease) H. pylori duodenitis Thyroid nodule Thalassemia carrier Ventral incisional hernia Complex regional pain syndrome Fibromyalgia Surgical History History of lumpectomy of right breast (12/11/22) History of removal of cyst History of umbilical hernia repair Family History Mother Thyroid cancer Maternal Grandfather Lung cancer Paternal Grandfather Heart attack Social History Housing: House Unable to assess alcohol history related to: Unknown Alcohol intake: never Patient Tobacco Use Status: Former Tobacco user Years Smoked: pt states quit 2009 e-Cigarette/Vaping Use: Never Used Second Hand Smoke Exposure: No service: No Current occupational status: disabled Current occupation: pt on disability Sexual orientation: Straight/Heterosexual Gender identity: Female Cognitive needs: No Hearing needs: No Vision needs: No Female Reproductive History Menstrual Age of Menarche: 10 Review of Systems Const All systems reviewed & are unremarkable except as noted in HPI and below Physical Exam Vital Signs: Last Vital Signs Temp 98.1 F 07/03/25 07:57 Pulse 87 07/03/25 07:57 Resp 16 07/03/25 07:57 BP 124/72 07/03/25 07:57 Pulse Ox 98 07/03/25 07:57 Oxygen Delivery Method Room Air 07/03/25 07:57 BMI result Body Mass Index 38.1 Assessment & Plan Assessment & Plan (1) Wasp sting: Code(s): T63.461A - Toxic effect of venom of wasps, accidental (unintentional), initial encounter Qualifiers: Encounter type: initial encounter Injury intent: accidental or unintentional Qualified Code(s): T63.461A - Toxic effect of venom of wasps, accidental (unintentional), initial encounter (2) Cellulitis: Code(s): L03.90 - Cellulitis, unspecified Qualifiers: Site of cellulitis: extremity Site of cellulitis of extremity: lower extremity Laterality: unspecified laterality Qualified Code(s): L03.119 - Cellulitis of unspecified part of limb Plan Most likely cellulitis after wasp bites Plan - Prescribe doxycycline for cellulitis management, with caution advised regarding sun exposure due to potential photosensitivity. - Prednisone burst for 5 days - Recommend protective measures against sun exposure, including wearing long clothing and using sunscreen, despite the patient's reluctance. Medications: New doxycycline hyclate 100 mg PO BID 14 tabs 0RF prednisone 40 mg (2 x 20 mg) PO DAILY 10 tabs 0RF 5 days Coding Level of Care Code Est Pt Level 3 (20829) Diagnoses Wasp sting, accidental or unintentional, initial encounter T63.461A Encounter type: initial encounter Injury intent: accidental or unintentional Cellulitis of lower extremity, unspecified laterality L03.119 Site of cellulitis: extremity Site of cellulitis of extremity: lower extremity Laterality: unspecified laterality
[2025-07-03 07:57] VITALS: BP 124/72; PULSE 87; RESP 16; TEMP 36.7; O2SAT 98; BMI 38.1
== END 2025-07-03 08:50 | disposition home or self-care (01) ==
PROVIDERS: PCP Internal Medicine; Visit Provider Physician Assistant Medical
DX: T63.461A Toxic effect of venom of wasps, accidental (unintentional), initial encounter (principal); L03.119 Cellulitis of unspecified part of limb

== ENCOUNTER → 2025-07-03 07:52 | Outpatient (BNVA) | payer MEDICARE, MEDICAID, SELFPAY | PROVIDERS: PCP Internal Medicine; Visit Provider Physician Assistant Medical | DX: T63.461D Toxic effect of venom of wasps, accidental (unintentional), subsequent encounter (principal); L03.115 Cellulitis of right lower limb; L03.116 Cellulitis of left lower limb | CPT/HCPCS: 99212 ==

== ENCOUNTER 2025-07-30 08:55 | Outpatient (AMB) | payer MEDICARE, MEDICAID, SELFPAY ==
[2025-07-30 08:57] VITALS: BP 128/78; PULSE 80; O2SAT 98; BMI 37.0
--- NOTE | 2025-07-30 08:57 | MHC.PC.OV ---
Vital Signs 07/30/25 08:57 Height 5 ft 3 in Weight 209 lb BMI 37.0 BP 128/78 Blood Pressure Location Lt brachial Position Sitting Pulse 80 Pulse Source Pulse Oximeter Pulse Oximetry (%) 98 Oxygen Delivery Method Room Air Intake Visit Reasons: m obesity Allergies Penicillins (PCN) Allergy (Intermediate, Verified 07/30/25 08:57) HIVES Medication List - Last Reconciled 07/30/25 by Thomas Boles MD [french herbs, Ling and turmeric PO] cholecalciferol (vitamin D3) 25 mcg PO DAILY ferrous fumarate 324 mg PO DAILY [K complete K1 +MK4 + Mk7 1 cap PO] multivitamin 1 tab PO DAILY phentermine 37.5 mg PO DAILY Tobacco use date assessed: 07/30/25 Dental Screening Dental Screen Date: 07/30/25 Did you have a dental visit in the last 12 months?: Yes Did you have a dental problem in the last 6 months where you did not have access to dental care?: No Was dental information given to patient?: Patient has dentist [facility] Medical History Arm pain, right Knee pain, right Pelvic pain in female Upper respiratory tract infection Locking of left knee Palpitations LLQ abdominal pain Changes in vision Vitamin D deficiency Mass of multiple sites of right breast Right shoulder injury Complex cyst of left ovary GERD (gastroesophageal reflux disease) H. pylori duodenitis Thyroid nodule Thalassemia carrier Ventral incisional hernia Complex regional pain syndrome Fibromyalgia Surgical History History of lumpectomy of right breast (12/11/22) History of removal of cyst History of umbilical hernia repair Family History Mother Thyroid cancer Maternal Grandfather Lung cancer Paternal Grandfather Heart attack Social History Housing: House Unable to assess alcohol history related to: Unknown Alcohol intake: never Patient Tobacco Use Status: Former Tobacco user Tobacco use type: Cigarette Years Smoked: pt states quit 2009 e-Cigarette/Vaping Use: Never Used Second Hand Smoke Exposure: No service: No Current occupational status: disabled Current occupation: pt on disability Sexual orientation: Straight/Heterosexual Gender identity: Female Cognitive needs: No Hearing needs: No Vision needs: No Female Reproductive History Menstrual Age of Menarche: 10 Questionnaire Thrive Questionnaire Date Thrive assessed: 03/24/25 I am a: Patient What is your living situation today?: I have a steady place to live Within the past 12 months, did the food you bought not last and you didn't have the money to get more?: Never true Within the past 12 months, did you worry whether your food would run out before you got money to buy more?: Never true Do you have trouble paying for medicines?: No Do you have trouble getting transportation to medical appointments?: No Do you have trouble paying your heating and electricity bill?: No Do you have trouble taking care of your child, family member or friend?: No Do you have trouble with day-to-day activities such as bathing, preparing meals, shopping, managing finances, etc.?: No Are you currently unemployed and looking for a job?: No Are you interested in more education?: No Please select the resources that you would like help with: None Currently or been in a relationship where the following occur: No concerns reported THRIVE Score: 0 AUDIT C Alcohol Use Questionnaire (AUDIT-C) 1. How often do you have a drink containing alcohol?: Never 3. How often do you have six or more drinks on one occasion?: Never Total Score: 0 AUGUSTINE-7 AMB Questionnaire AUGUSTINE-7 Date AUGUSTINE - 7 assessed: 03/24/25 (pt DX with situational anxiety ) Source: Developed by Drs. Cristian Valdivia, Nehal Galindo, Paramjit Cerrato and colleagues, with an educational xiao from [employer]. Physical exam (Primary Care) Vital Signs: Last Vital Signs Pulse 80 07/30/25 08:57 BP 128/78 07/30/25 08:57 Pulse Ox 98 07/30/25 08:57 Oxygen Delivery Method Room Air 07/30/25 08:57 BMI result Body Mass Index 37.0 Tobacco/Smoking Status: Tobacco use Status Tobacco use date assessed 07/30/25 07/30/25 08:59 Patient Tobacco Use Status Former Tobacco user 07/30/25 08:59 Tobacco use type Cigarette 07/30/25 08:59 e-Cigarette/Vaping Use Never Used 07/30/25 08:59 Thrive Assessment: Date of Thrive Assessment Date Thrive assessed 03/24/25 07/30/25 08:59 Currently or been in a relationship where the following occur: No concerns reported Const General: alert; No acute distress Eyes Conjunctivae: conjunctivae normal Resp Auscultation: clear to auscultation bilaterally Cardio Rate: regular rate Rhythm: regular rhythm GI Inspection: Yes normal to inspection Extrem General: Yes normal to inspection and No edema Coding Level of Care Code Est Pt Level 4 (00437) Complex EM visit Add On G2211 Diagnoses Morbid obesity E66.01 Gastroesophageal reflux disease without esophagitis K21.9 Esophagitis presence: without esophagitis Mammogram declined Z53.20 Thalassemia carrier D56.3 Cervical cancer screening declined Z53. Assessment & Plan Assessment & Plan (1) Morbid obesity: Code(s): E66.01 - Morbid (severe) obesity due to excess calories Category: Medical Plan: Patient on phentermine presently blood pressure is good pulse rate is good (2) GERD (gastroesophageal reflux disease): Code(s): K21.9 - Gastro-esophageal reflux disease without esophagitis Category: Medical Qualifiers: Esophagitis presence: without esophagitis Qualified Code(s): K21.9 - Gastro-esophageal reflux disease without esophagitis Plan: Avoid the foods that causes that usually spicy foods, tomato products, juices, coffee, soda and foods that your sensitive to. After eating do not lie down, allow 3-4 hours before in lie down. And keep the head of bed above 30 degrees to avoid the acid from going up. (3) Mammogram declined: Comment: 03/2025 declined Code(s): Z53.20 - Procedure and treatment not carried out because of patient's decision for unspecified reasons Category: Medical Plan: Patient has declined mammogram (4) Thalassemia carrier: Comment: [facility] Code(s): D56.3 - Thalassemia minor Category: Medical Plan: Stable (5) Cervical cancer screening declined: Code(s): Z53.20 - Procedure and treatment not carried out because of patient's decision for unspecified reasons Category: Medical Plan History of Present Illness The patient is a 40-year-old female presenting for a follow-up visit. She has a history of obesity and has recently achieved a 6-pound weight loss. She is actively engaged in weight management and is currently on phentermine. Her dietary intake is restricted to 1100 to 1500 calories per day, and she exercises for a minimum of 60 minutes daily, including walking 3 to 5 miles and using exercise equipment at home. The patient has a history of Gastroesophageal Reflux Disease (GERD) and reports taking medication for reflux. She also has a thyroid nodule, which was noted during the visit. She had a breast mass excised in 2022 and has a history of anxiety disorder. Additionally, she has thalassemia and reports a history of microcytosis, although her blood work shows normal blood counts. In June 2022, she was treated for cellulitis following a wasp sting on her legs, for which she received doxycycline and prednisone. In May 2022, she experienced rectal pain and was advised to take hot sitz baths. In March 2025, she visited the ER for hand swelling due to an allergic reaction and was treated with prednisone. Her recent blood work indicated normal blood counts, electrolytes, renal function, blood sugar, and liver function, with a normal cholesterol level and LDL of 59. Health Maintenance - Declined mammogram and cervical cancer screening - Engaged in weight management program - Regular exercise routine including walking and use of exercise equipment - Dietary modifications with reduced calorie intake Social History - Exercise: Engages in regular physical activity, including walking 3 to 5 miles daily and using exercise equipment at home. - Nutrition: Consumes 1100 to 1500 calories daily, focusing on meats, vegetables, and salads, while avoiding bread, pasta, rice, and sweets. - Family: for 26 years, with family members joining in dietary changes. Review of Systems - Gastrointestinal: Reports history of GERD, denies current symptoms. - Endocrine: Reports thyroid nodule, denies symptoms. - Hematologic: Reports history of thalassemia and microcytosis, denies symptoms. - Dermatologic: Reports past cellulitis following wasp sting, denies current symptoms. - Psychiatric: Reports anxiety disorder, denies current symptoms. Physical Exam Results - Labs: Normal blood count with microcytosis, normal platelet count, normal white blood cell count, normal electrolytes, renal function, blood sugar, liver function, and cholesterol with LDL of 59. Plan Patient was informed and verbally consented to the use of an ambient scribe for clinic note documentation during this visit. 1. Obesity The patient is actively engaged in a weight management program, consuming 1100 to 1500 calories daily and exercising for at least 60 minutes a day. She is currently on phentermine to aid weight loss. Continued monitoring of weight and dietary habits is recommended. 2. Gastroesophageal Reflux Disease (Gerd) The patient reports a history of GERD and is currently taking medication for reflux. Continued management with lifestyle modifications and medication adherence is advised. 3. Thyroid Nodule The patient has a thyroid nodule, which requires monitoring for any changes in size or symptoms. Further evaluation may be necessary if symptoms develop. 4. Breast Mass, Status Post Excision The patient had a breast mass excised in 2022. Regular follow-up and monitoring for any new masses or changes are recommended. 5. Anxiety Disorder The patient has a history of anxiety disorder. Continued management with therapy or medication as needed is advised. 6. Thalassemia The patient has a history of thalassemia with microcytosis. Regular monitoring of blood counts is recommended to manage any potential complications. 7. Preventative Care The patient has declined mammogram and cervical cancer screening. It is important to discuss the benefits of these screenings and encourage reconsideration in future visits. Discussion Notes Patient Instructions Orders: Orders Complete Blood Count Auto Diff Today K21.9 - Gastro-esophageal reflux disease without esophagitis Comprehensive Met. Panel Today K21.9 - Gastro-esophageal reflux disease without esophagitis IRON PROFILE Today K21.9 - Gastro-esophageal reflux disease without esophagitis Free T4 (Free Thyroxine) Today K21.9 - Gastro-esophageal reflux disease without esophagitis Vitamin D 25-OH Total Today K21.9 - Gastro-esophageal reflux disease without esophagitis Hemoglobin A1c Today K21.9 - Gastro-esophageal reflux disease without esophagitis Ferritin Today K21.9 - Gastro-esophageal reflux disease without esophagitis Lipid Panel Today E78.00 - Pure hypercholesterolemia, unspecified, K21.9 - Gastro-esophageal reflux disease without esophagitis Reticulocyte Count Today K21.9 - Gastro-esophageal reflux disease without esophagitis Vitamin B12 and Folate Today K21.9 - Gastro-esophageal reflux disease without esophagitis Thyroid Stimulating Hormone Today K21.9 - Gastro-esophageal reflux disease without esophagitis UA CC w/rflx Micro + Cult Today K21.9 - Gastro-esophageal reflux disease without esophagitis, R30.0 - Dysuria
--- OUTSIDE RECORDS SUMMARY | 2025-07-30 10:14 | XMS_ITS | Encounter Summary ---
Author Organization [facility] Address [address] [facility] [address] [place] [address] Phone Care Team Providers Care Senior Ui Ux Designer Name Role Phone Ximena Martin Primary Care Provider [phone] Thomas Boles MD Primary Care Provider [phone] Encounter Details Date Type Department Care Team (Late st Contact Info) Description 02/06/2019 Procedure Pass [facility] General Imaging [address] [place] [address] Social History Tobacco Use Types Packs/Day Years [...] on filedocumented in this encounter Care Teams Senior Ui U[employer] Designer Relationship Specialty Start Date End Date Ximena Martin PA [address] [place] [address] PCP - General Unknown Provider Specialty 05/29/1811/18/24 Thomas Boles MD [address] [place] [phone] PCP - General Internal Medicine 11/19/24 documented as of this encounter Additional Source Comments The information contained in this document represents components of the legal health record. It is not the complete legal health record.[facility]
--- OUTSIDE RECORDS SUMMARY | 2025-07-30 10:14 | XMS_ITS | Clinical Summary ---
Author Organization [facility] Address [address] [place] [address] Care Team Providers Care Printed Circuit Board Designer Name Role Phone Thomas Boles Primary Care [...] Health Maintenance Due Date Last Done Comments HIV Screening 1983 Varicella Vaccines (1 of 2 - 13+ 2-dose series) 1996 Hepatitis B Vaccines (1 of 3 - 19+ 3-dose series) 2002 Alcohol/Substance Use Screening 11/12/2024 Depression Screening and Follow-Up 11/12/2024 Social Drivers of Health Annual Screening 11/12/2024 DTaP,Tdap,and Td Vaccines (3 - Td or Tdap) 04/13/2025 04/13/2015, 05/03/2012 COVID-19 Vaccine (1 - 2023-2 5 season) 2025 Influenza Vaccine (#1) 2025 07/18/2012 RSV Vaccine (60+ years old and patients) (1 - 1-dose 75+ series) 2058 Pneumococcal Vaccine: Pediatric (0-5 Years) and At-Risk Patients (6-50 Years) Aged Out No longer eligible based on patient's age to complete this topic Insurance MEDICARE [facility] Care Teams Printed Circuit Board Designer Relationship Specialty Start Date End Date Thomas Boles [address] [place] [address] [place] [address] PCP - General Internal Medicine 06/06/21
--- OUTSIDE RECORDS SUMMARY | 2025-07-30 10:14 | XMS_ITS | Clinical Summary ---
Author Organization [facility] Address [address] [facility] [address] [place] [address] Phone Care Team Providers Care Appraiser Auditor Name Role Phone Thomas Boles MD Primary Care Provider Allergies Active Allergy Reactions Criticality Noted Date [...] 84 09/03/2018 1:10 PM EDT Temperature 36.7 C (98.1 F) 09/03/2018 1:10 PM EDT Respiratory Rate 16 09/03/2018 1:10 PM EDT Oxygen Saturation 98% 02/20/2019 9:51 AM EDT Inhaled Oxygen Concentration - - Weight - - Height - - Body Mass Index - - Plan of Treatment Health Maintenance Due Date Last Done Comments DEPRESSION SCREENING 1995 SMOKING Hx and SMOKELESS TOB ACCO SCREENING 1996 HEPATITIS C SCREENING 2001 HIV ONE-TIME SCREENING (18-6 5 YEARS) 2001 PAP SMEAR 2004 Adult Td,Tdap Booster 05/03/2022 05/03/2012 MAMMOGRAM 2023 COVID-19 VACCINE (1 - 2023-2 5 season) 2024 INFLUENZA VACCINE (#1) 2025 07/18/2012 HEPATITIS A VACCINES Aged Out No long er eligible based on patient's age to complete this topic HIB VACCINES Aged Out No longer eligi ble based on patient's age to complete this topic MENINGOCOCCAL VACCINES (ACWY) Aged Out No longer eligible based on patient's age to complete this topic MENINGOCOCCAL VACCINES (B) Aged Out N o longer eligible based on patient's age to complete this topic PNEUMOCOCCAL VACCINES (0-49 years) Aged Out No longer eligible based on patient's age to complete this topic Medical Devices Not on file Insurance [employer]HEALTH MEDICARE PART A & [facility] PART A & B [place] MED[facility] PART [facility] MEDICARE PART A & B Care Teams Appraiser Auditor Relationship Specialty Start Date End Date Ramana, Thomas Oneil MD [address] [place] [phone] PCP - General Internal Medicine 11/19/24 Additional Source Comments The information contained in this document represents components of the legal health record. It is not the complete legal health record.[facility]
--- OUTSIDE RECORDS SUMMARY | 2025-07-30 10:14 | XMS_ITS | Patient Health Record ---
Author Organization [facility] Address [address] [place] [address] Care Team Providers Care Chief Analytics Officer Name Role Phone Roxana PEDROZA MD, Dorian [...] Insured Coverage Start Date Coverage End Date [facility] [facility] [address] [address] [place] [address] [id number] OCTAVIANO SHAHID Self - patient is the insured [employer] [place] of [place] [address] [place] [address] [id number] OCTAVIANO SHAHID Self - patient is the insured Medical (General) History Medical History History ICD Code chronic hand pain GERD bronchitis joint pain hernia arthritis Surgical History Surgery Date(Month/Year) hernia repair
--- OUTSIDE RECORDS SUMMARY | 2025-07-30 10:15 | XMS_ITS | Encounter Summary ---
Author Organization [facility] Address [address] [facility] [address] [place] [address] Phone Care Team Providers Care Cashier Office Name Role Phone Ximena Martin Primary Care Provider PoThomas MD Primary Care Provider [phone] Reason for Referral * Rehabilitation (Elective) - Closed Specialty Diagnoses / Procedures Referred By Deanna olmedo Referred To Contact Diagnoses Complex regional pain syndrome type 1, affecting unspecified site Zach Donahue MD Phone: tel: fax: [email or web address] [facility] [address] [place] [address] Phone: tel: fax: Referral ID Status Reason Start Date Expiration Date Visits Re quested Visits Authorized [id number] Closed 08/01/2018 08/01/2019 1 1 Encounter Details Date Type Department Care Team (Latest Contact Info) Description 08/01/2018 Transcribe Orders [facility] Physical Therapy [address] [place] [address] Jaky Coronado [email or web address] Complex regional pain syndrome type 1, [...] Diagnoses Orde r Schedule Ambulatory referral to [facility] Physical Medicine and Rehab Outpatient Referral Routine Complex regional pain syndrome type 1, affecting unspecified site Ordered: 08/01/2018 documented as of this encounter Visit Diagnoses Diagnosis Complex regional pain syndrome type 1, affecting unspecified site- Primary documented in this encounter Care Teams Cashier Office Relationship Specialty Start Date End Date Ximena Martin PA [address] [place] [address] PCP - General Unknown Provider Specialty 05/29/1811/18/24 Thomas Boles MD [address] [place] [address] [address] [place] [address] PCP - General Internal Medicine 11/19/24 documented as of this encounter Additional Source Comments The information contained in this document represents components of the legal health record. It is not the complete legal health record.[facility]
== END 2025-07-30 10:19 | disposition home or self-care (01) ==
LOC: HO.HMCH 08:56
PROVIDERS: PCP Internal Medicine; Visit Provider Internal Medicine
DX: K21.9 Gastro-esophageal reflux disease without esophagitis (principal); E66.01 Morbid (severe) obesity due to excess calories; Z68.37 Body mass index [BMI] 37.0-37.9, adult; Z53.20 Procedure and treatment not carried out because of patient's decision for unspecified reasons; D56.3 Thalassemia minor

== ENCOUNTER → 2025-07-30 08:55 | Outpatient (BNVA) | payer MEDICARE, MEDICAID, SELFPAY | PROVIDERS: PCP Internal Medicine; Visit Provider Internal Medicine | DX: E66.01 Morbid (severe) obesity due to excess calories (principal); K21.9 Gastro-esophageal reflux disease without esophagitis; D56.3 Thalassemia minor; E04.1 Nontoxic single thyroid nodule; F41.9 Anxiety disorder, unspecified; E78.00 Pure hypercholesterolemia, unspecified; R30.0 Dysuria; Z68.37 Body mass index [BMI] 37.0-37.9, adult | CPT/HCPCS: 99212 ==

== ENCOUNTER 2025-08-10 07:37 | Outpatient (REF) | payer MEDICARE, MEDICAID, SELFPAY ==
--- OUTSIDE RECORDS SUMMARY | 2025-08-10 07:41 | XMS_ITS | Clinical Summary ---
Author Organization [facility] Address [address] [facility] [address] [place] [address] Phone Care Team Providers Care Registered Diet Technician Name Role Phone Thomas Boles MD Primary Care Provider [phone] Allergies Active Allergy Reactions Criticality Noted Date [...] 05/03/2022 05/03/2012 MAMMOGRAM 2023 INFLUENZA VACCINE (#1) 2025 07/18/2012 COVID-19 VACCINE (1 - 2023-2 5 season) 2025 HEPATITIS A VACCINES Aged Out No long [...] topic Medical Devices Not on file Insurance [employer] MED[facility] PART [facility] [place] [facility] PART [facility] & [facility] B Care Teams Registered Diet Technician Relationship Specialty Start Date End Date Ramana, Thomas Oneil MD [address] [place] [phone] PCP - General Internal Medicine 11/19/24 Additional Source Comments The information contained in this document represents components of the legal health record. It is not the complete legal health record.[facility]
--- OUTSIDE RECORDS SUMMARY | 2025-08-10 07:41 | XMS_ITS | Encounter Summary ---
Author Organization [facility] Address [address] [facility] [address] [place] [address] Phone Care Team Providers Care Music Educator Name Role Phone Ximena Martin Primary Care Provider [phone] Thomas Boles MD Primary Care Provider [phone] Encounter Details Date Type Department Care Team (Late st Contact Info) Description 02/06/2019 Procedure Pass [facility] General Imaging [address] [place] [address] Social History Tobacco Use Types Packs/Day Years [...] on filedocumented in this encounter Care Teams Music Educator Relationship Specialty Start Date End Date Ximena Martin PA [address] [place] [address] PCP - General Unknown Provider Specialty 05/29/1811/18/24 Thomas Boles MD [address] [place] [phone] PCP - General Internal Medicine 11/19/24 documented as of this encounter Additional Source Comments The information contained in this document represents components of the legal health record. It is not the complete legal health record.[facility]
--- OUTSIDE RECORDS SUMMARY | 2025-08-10 07:41 | XMS_ITS | Clinical Summary ---
Author Organization [facility] Address [address] [place] [address] Care Team Providers Care American Sign Language Teacher Name Role Phone Thomas Boles Primary Care Provider [phone] Allergies No known active allergies Medications No [...] age to complete this topic Insurance MEDICARE [facility] Care Teams American Sign Language Teacher Relationship Specialty Start Date End Date Thomas Boles [address] [place] [address] [place] [address] PCP - General Internal Medicine 06/06/21
--- OUTSIDE RECORDS SUMMARY | 2025-08-10 07:41 | XMS_ITS | Patient Health Record ---
Author Organization [facility] Address [address] [place] [address] Care Team Providers Care Computer Technologist Name Role Phone Roxana PEDROZA MD, Dorian Primary Care Provider Un available Allergies Allergen (clinical drug ingredient) Drug/Non Drug Allergy documented on EMR Reaction Allergy Type Onset Date Status oxycodone Oxycodone (uncoded) HIVES Allergy Active PENICILLIN (uncoded) HIVES Allergy Active Reason For Referral No Information Medications Medication SIG (Take, Route, Frequency, Duration) Notes Start Date End Date Status Methocarbamol 500 MG Tablet 1 tablet Orally every 8 hrs; Duration: 30 days 07/03/2016 Not-Taking/PRN Meloxicam 7.5 MG Tablet 1 tablet Orally Once a day; Duration: 30 day(s) 07/03/2016 Not-Taking/PRN Social History Tobacco Use: Social History Observation Description Date Details (start date - stop date) Former Smoker NA - NA Social History Tobacco Use: Social Info Question Answer Notes Tobacco Use/Smoking Are you a former smoker How long has it been since you last smoked? 6-12 months Plan Of Treatment No Information Insurance Providers Payer Name Payer Address Payer Phone Subscriber Number Group Number Insured Name Patient Relationship to Insured Coverage Start Date Coverage End Date [facility] [address] [address] [place] [address] [id number] OCTAVIANO SHAHID Self - patient is the insured [employer] [place] [address] [place] [address] [id number] OCTAVIANO SHAHID Self - patient is the insured Medical (General) History Medical History History ICD Code chronic hand pain GERD bronchitis joint pain hernia arthritis Surgical History Surgery Date(Month/Year) hernia repair
--- OUTSIDE RECORDS SUMMARY | 2025-08-10 07:42 | XMS_ITS | Encounter Summary ---
Author Organization [facility] Address [address] [facility] [address] [place] [address] Phone Care Team Providers Care Telecommunications Specialist Name Role Phone Ximena Martin Primary Care Provider [phone] PoThomas MD Primary Care Provider [phone] Reason for Referral * Rehabilitation (Elective) - Closed Specialty Diagnoses / Procedures Referred By Deanna olmedo Referred To Contact Diagnoses Complex regional pain syndrome type 1, affecting unspecified site Zach Donahue MD Phone: tel: fax: [email or web address] [facility] [address] [place] [address] Phone: tel: fax: Referral ID Status Reason Start Date Expiration Date Visits Re quested Visits Authorized [id number] Closed 08/01/2018 08/01/2019 1 1 Encounter Details Date Type Department Care Team (Latest Contact Info) Description 08/01/2018 Transcribe Orders [facility] Physical Therapy [address] [place] [address] Jaky Coronado [email or web address] Complex regional pain syndrome type 1, [...] Diagnoses Orde r Schedule Ambulatory referral to [facility] Physical Medicine and Rehab Outpatient Referral Routine Complex regional pain syndrome type 1, affecting unspecified site Ordered: 08/01/2018 documented as of this encounter Visit Diagnoses Diagnosis Complex regional pain syndrome type 1, affecting unspecified site- Primary documented in this encounter Care Teams Telecommunications Specialist Relationship Specialty Start Date End Date Ximena Martin PA [address] [place] [address] PCP - General Unknown Provider Specialty 05/29/1811/18/24 Thomas Boles MD [address] [place] [address] [address] [place] [address] PCP - General Internal Medicine 11/19/24 documented as of this encounter Additional Source Comments The information contained in this document represents components of the legal health record. It is not the complete legal health record.[facility]
[2025-08-10 07:59] LABS: MANUAL DIFF FLAG NO
[2025-08-10 09:11] LABS: Hematocrit 38.6 % (37.0-47.0); Hemoglobin 12.1 g/dl (12.0-16.0); Imm Gran Abs Auto 0.01 X10*3/uL (0.00-0.03); Imm Gran Pct Auto 0.2 % (0.0-0.4); Lymphocytes Absolute Auto 1.0 X10*3/uL (1.2-4.9); Mean Corpuscular HGB Conc 31.3 g/dl (31.0-35.0); Mean Corpuscular Hemoglobin 21.6 pg (27.0-33.0); Mean Corpuscular Volume 68.8 fL (80.0-98.0); NRBC Abs Auto 0.000 X10*3/uL (0.0-0.012); NRBC Pct Auto 0.0 /100WBC (0.0-0.2); Platelet Count 243 X10*3/uL (160-400); Red Blood Count 5.61 X10*6/uL (4.20-5.50); Reticulocytes Absolute 0.037 X10*6/uL (0.026-0.095); White Blood Count 5.1 X10*3/uL (4.8-10.8)
[2025-08-10 09:17] LABS: Hemoglobin A1C 114.8019 umol/L
[2025-08-10 09:42] LABS: Alanine Aminotransferase 16 U/L (0-31); Albumin Level 4.5 g/dL (3.5-5.0); Alkaline Phosphatase 42 U/L (39-117); Anion Gap 11 (12-20); Aspartate Amino Transferase 15 U/L (5-31); Blood Urea Nitrogen 14 mg/dL (9-16); Calcium 9.5 mg/dL (8.4-10.2); Carbon Dioxide 26 mmol/L (22-29); Chloride 109 mmol/L (96-108); Cholesterol 110 mg/dL (<200); Estimated Glomerular Filt Rate > 60; HDL Cholesterol 43 mg/dL (>40); Iron 80 mcg/dL (30-160); Percent Iron Saturation 42 % (15-50); Potassium 4.2 mmol/L (3.3-5.1); Sodium 142 mmol/L (135-145); Total Iron Binding Capacity 190 mcg/dL (228-428); Total Protein 6.9 g/dL (6.5-8.0); Triglycerides 41 mg/dL (<150); Unsaturated Iron Binding 110 ug/dL
[2025-08-10 10:06] LABS: Ferritin 95 ng/mL (10-250); Free T4 (Free Thyroxine) 1.36 ng/dL (0.71-1.85); Thyroid Stimulating Hormone 1.73 uIU/mL (0.32-4.0)
[2025-08-10 10:07] LABS: Folate 9.1 ng/mL (> or = 4.0); Vitamin B12 357 pg/mL (200-900)
[2025-08-10 10:14] LABS: Appearance Urine Cloudy; Glucose Urine UA Negative (Negative); PH 7.0 (5.0-9.0); Specific Gravity - Urine 1.025 (1.005-1.025); UMIC TRIGGER UACC YES
[2025-08-10 10:38] LABS: UACC Culture Trigger YES
== END 2025-08-10 07:38 | disposition home or self-care (01) ==
LOC: HO.LAB 07:37
PROVIDERS: PCP Internal Medicine; Visit Provider Internal Medicine
DX: Z13.1 Encounter for screening for diabetes mellitus (principal); K21.9 Gastro-esophageal reflux disease without esophagitis; E78.00 Pure hypercholesterolemia, unspecified; R30.0 Dysuria
CPT/HCPCS: 36415; 80053; 80061; 81001; 81003; 82306; 82607; 82728; 82746; 83036; 83540; 84439; 84443; 85025; 85045; 87086